=== PATIENT | male | born 1960 | race Caucasian/White ===

== ENCOUNTER 2017-07-14 15:52 | Emergency (ER) | payer OTHER ==
[~2017-07-14] VITALS: Ht 177.8 cm; Wt 80.7 kg
[2017-07-14 16:00] VITALS: BP_SYST 138
[2017-07-14] MEDS ORDERED: KETOROLAC TROMETHAMINE 30 MG VIAL IVP ONE (16:45)
[2017-07-14 16:53] LABS: BASOPHILS # (AUTO) 0.2 K/uL (0.0-0.2); BASOPHILS % (AUTO) 1.3 % (0.0-2.0); EOSINOPHILS # (AUTO) 0.1 K/uL (0.0-0.4); EOSINOPHILS % (AUTO) 1.1 % (0.0-4.0); HEMATOCRIT 49.7 % (36-54); HEMOGLOBIN 16.8 g/dL (14.0-18.0); MEAN CORPUSCULAR HEMOGLOBIN 34 pg (27-31); MEAN CORPUSCULAR HGB CONC 34 % (32-36); MEAN CORPUSCULAR VOLUME 99 fL (79.0-98.0); MONOCYTES # (AUTO) 1.2 K/uL (0.0-1.0); MONOCYTES % (AUTO) 9.7 % (1.7-9.3); NEUTROPHILS # (AUTO) 8.4 K/uL (1.8-7.7); NEUTROPHILS % (AUTO) 70.9 % (40.0-70.0); PLATELET COUNT (AUTO) 246 K/uL (130-430); RED BLOOD CELL COUNT(AUTO) 5.01 MIL/uL (4.2-6.2); RED CELL DISTRIBUTION WIDTH 13.8 % (9.0-15.0); WHITE BLOOD COUNT (AUTO) 11.9 K/uL (4.8-10.8)
[2017-07-14 16:54] LABS: CALCIUM 10.1 mg/dL (8.4-11.0); CREATININE 0.99 mg/dL (0.55-1.30); POTASSIUM 3.3 mmol/L (3.5-5.1)
[2017-07-14 16:58] LABS: PROTHROMBIN TIME 9.8 SECS (9.5-12.5)
[2017-07-14 16:59] LABS: ALBUMIN 3.7 g/dL (3.4-4.8); TOTAL BILIRUBIN 0.5 mg/dL (0.0-1.0)
[2017-07-14 18:19] VITALS: BP_SYST 135
== END 2017-07-14 18:14 | disposition home or self-care (01) ==
LOC: EDBD 15:52 → SED 15:52
DX: K51.90 Ulcerative colitis, unspecified, without complications (principal); Z88.1 Allergy status to other antibiotic agents
CPT/HCPCS: 36415; 71045; 80053; 85025; 85610; 85730; 86886; 86900; 86901; 93005; 96374; 99285; J1885

== ENCOUNTER 2018-04-20 15:39 | Emergency (ER) | payer OTHER ==
[~2018-04-20] VITALS: Ht 177.8 cm; Wt 90.7 kg
[2018-04-20 15:43] VITALS: BP_SYST 129
--- NOTE | 2018-04-20 15:50 | NUR ---
Patient reports having productive cough since Friday. Reports having three syncopal episodes yesterday and hitting head on porcelian tile. Abrasion to upper right head.
--- NOTE | 2018-04-20 16:57 | NUR ---
Patient to ER bed 02 to gown for evaluation. Side rails up. Report given to OLIVIA Dinero
--- NOTE | 2018-04-20 17:10 | NUR ---
Pt c/o cough x 2 days worsening today. Pt has no acute resp distress noted. Pt h/o HTN,Bronchitis and admits to smoking 1 pk a day.
--- NOTE | 2018-04-20 17:15 | NUR ---
ER at bedside examining patient.
[2018-04-20 17:29] VITALS: BP_SYST 129
--- NOTE | 2018-04-20 17:29 | NUR ---
Patient given written and verbal discharge instructions and verbalizes understanding. ER MD discussed with patient the results and treatment provided. Patient in stable condition. ID arm band removed. Rx of prednisone,azithromycin given. Patient educated on pain management and to follow up with PMD. Pain Scale 2. Opportunity for questions provided and answered. Medication side effect fact sheet provided.
== END 2018-04-20 17:29 | disposition home or self-care (01) ==
LOC: SED 15:39
DX: J11.1 Influenza due to unidentified influenza virus with other respiratory manifestations (principal); R05 Cough; F17.210 Nicotine dependence, cigarettes, uncomplicated; I10 Essential (primary) hypertension; Z88.1 Allergy status to other antibiotic agents
CPT/HCPCS: 99283

== ENCOUNTER 2019-07-14 16:01 | Emergency (ER) | payer BC, OTHER ==
[~2019-07-14] VITALS: Ht 177.8 cm; Wt 79.4 kg
[2019-07-14 16:03] VITALS: BP_SYST 142
--- NOTE | 2019-07-14 16:05 | NUR ---
Patient triaged and placed in waiting room. VSS and patient appears in no acute distress at this time. Accompanied by FAMILY, awaiting available bed, and MD notified of need for MSE.
--- NOTE | 2019-07-14 17:10 | NUR ---
Patient to ER bed 1 to gown for evaluation. Side rails up.
--- NOTE | 2019-07-14 17:15 | NUR ---
Patient presented to ER C/O mechanical fall. Patient ETOH, BIB ex- ambulatory, pain 9/10, facial abrasions to nose and right cheek, denies N/V/D. Patient states he fell today, son assisted to chair, pain to back of head and facial abrasions.
--- NOTE | 2019-07-14 17:45 | NUR ---
ER Dr. LEWIS at bedside examining patient.
--- NOTE | 2019-07-14 19:10 | NUR ---
Report to Lashawn BAKER
--- NOTE | 2019-07-14 19:33 | NUR ---
ER Dr. Johnson at bedside explaining results to patient.
[2019-07-14 19:45] VITALS: BP_SYST 130
--- NOTE | 2019-07-14 19:45 | NUR ---
Patient given written and verbal discharge instructions and verbalizes understanding. ER MD discussed with patient the results and treatment provided. Patient in stable condition. ID arm band removed. No Rx given. Patient educated on pain management and to follow up with PMD. Pain Scale 0. Opportunity for questions provided and answered. Medication side effect fact sheet provided.
== END 2019-07-14 19:45 | disposition home or self-care (01) ==
LOC: SED 16:01
DX: S00.03XA Contusion of scalp, initial encounter (principal); S00.81XA Abrasion of other part of head, initial encounter; I10 Essential (primary) hypertension; F17.290 Nicotine dependence, other tobacco product, uncomplicated; Z88.1 Allergy status to other antibiotic agents; W18.39XA Other fall on same level, initial encounter; Y93.89 Activity, other specified; Y92.89 Other specified places as the place of occurrence of the external cause; Y99.8 Other external cause status
CPT/HCPCS: 70450-TC; 70486-TC; 72125-TC; 99284

== ENCOUNTER 2019-11-08 15:32 | Inpatient (IN) | payer BC ==
[~2019-11-08] VITALS: Ht 177.8 cm; Wt 74.8 kg
[2019-11-08 15:33] VITALS: BP_SYST 129
[2019-11-08] MEDS ORDERED: NACL 0.9% 1,000 ML IV ONE (15:45)
[2019-11-08 15:57] LABS: BASOPHILS % (AUTO) 0.3 % (0.0-2.0); EOSINOPHILS % (AUTO) 0.4 % (0.0-4.0); HEMATOCRIT 23.7 % (36-54); HEMOGLOBIN 7.1 g/dL (14.0-18.0); LYMPHOCYTES % (AUTO) 12.9 % (20.5-51.5); MEAN CORPUSCULAR HEMOGLOBIN 23 pg (27-31); MEAN CORPUSCULAR HGB CONC 30 % (32-36); MEAN CORPUSCULAR VOLUME 78 fL (79.0-98.0); MONOCYTES # (AUTO) 0.7 K/uL (0.0-1.0); MONOCYTES % (AUTO) 9.8 % (1.7-9.3); NEUTROPHILS # (AUTO) 5.6 K/uL (1.8-7.7); NEUTROPHILS % (AUTO) 76.6 % (40.0-70.0); PLATELET COUNT (AUTO) 220 K/uL (130-430); RED BLOOD CELL COUNT(AUTO) 3.05 MIL/uL (4.2-6.2); RED CELL DISTRIBUTION WIDTH 18.3 % (9.0-15.0); WHITE BLOOD COUNT (AUTO) 7.4 K/uL (4.8-10.8)
[2019-11-08 16:30] LABS: ANION GAP 8 (5-15); CALCIUM 7.1 mg/dL (8.4-11.0); CHLORIDE 104 mmol/L (98-107); CREATININE 0.97 mg/dL (0.55-1.30); GLUCOSE 76 mg/dL (70-99); SODIUM SERUM 137 mmol/L (136-145); UREA NITROGEN, BLOOD 4 mg/dL (8-21)
[2019-11-08 16:36] LABS: GFR AFRICAN AMERICAN 102 mL/min (>90)
[2019-11-08] MEDS ORDERED: THIAMINE HCL 100 MG/ML VIAL IM ONE (16:45)
[2019-11-08] MEDS ORDERED: POTASSIUM CHLORIDE 20 MEQ TAB.PRT.SR PO ONE (16:45)
[2019-11-08] MEDS ORDERED: FOLIC ACID 5 MG/ML VIAL IV ONE (16:45)
[2019-11-08] MEDS ORDERED: THIAMINE HCL 100 MG in NS 50 ML IV ONE (16:45)
[2019-11-08 16:51] LABS: ALANINE AMINOTRANSFERASE 38 U/L (12-78); ALBUMIN 1.6 g/dL (3.4-4.8); ASPARTATE AMINOTRANSFERASE 52 U/L (10-37); LIPASE 24 U/L (73-393); TOTAL BILIRUBIN 0.7 mg/dL (0.0-1.0)
[2019-11-08 16:55] LABS: ALCOHOL, BLOOD < 3 mg/dL (<10); POTASSIUM 2.8 mmol/L (3.5-5.1)
[2019-11-08] MEDS ORDERED: LORazepam 2 MG/ML VIAL IVP ONE (17:00)
[2019-11-08 17:06] LABS: INR 1.2 (0.80-1.20); PROTHROMBIN TIME 11.8 SECS (9.5-12.5)
[2019-11-08] MEDS ORDERED: THIAMINE HCL 100 MG/ML VIAL ONE (17:20)
[2019-11-08 17:41] LABS: BARBITURATE, URINE NEGATIVE (NEG <=200); BENZODIAZEPINE, URINE POSITIVE (NEG <=150); CANNABINOID, URINE NEGATIVE (NEG <=50); COCAINE, URINE NEGATIVE (NEG <=150); METHAMPHETAMINES SCREEN,URINE NEGATIVE (NEG <=500); OPIATE, URINE NEGATIVE (NEG <=100); PHENCYCLIDINE SCREEN,URINE NEGATIVE (NEG <=25); UR TRICYCLIC ANTIDEPRESSANTS NEGATIVE (NEG <=300); URINE AMPHETAMINE NEGATIVE (NEG <=500); URINE METHADONE NEGATIVE (NEG <=200); URINE OXYCODONE SCREEN NEGATIVE (NEG <=100); URINE PROPOXYPHENE SCREEN NEGATIVE (NEG <=300)
[2019-11-08 18:36] VITALS: BP_SYST 138
[2019-11-08 20:00] VITALS: BP_SYST 146
[2019-11-08] MEDS ORDERED: FOLIC ACID 1 MG, THIAMINE HCL 100 MG, MAGNESIUM SULFATE 1 GM, MVI 10 ML in NACL 0.9% 1,... IV SCH (20:30)
[2019-11-08] MEDS ORDERED: ALBUTEROL SULFATE 0.083% 2.5 MG/3 ML VIAL.NEB INH PRN (20:30)
[2019-11-08] MEDS ORDERED: INSULIN REGULAR, HUMAN 100 UNITS/ML, 10 ML VIAL (humuLIN R) SUBCUT PRN (20:30)
[2019-11-08] MEDS: PANTOPRAZOLE SODIUM 40 MG TAB PO SCH (20:35)
[2019-11-08] MEDS: NACL 0.9% 1,000 ML IV SCH (20:35)
[2019-11-08] MEDS: MORPHINE 2 MG/ML INJ. SYRINGE IVP PRN (20:52)
[2019-11-08 23:50] VITALS: BP_SYST 121
[2019-11-09] MEDS: LORazepam 2 MG/ML VIAL IVP PRN ×3 (01:02→22:50)
[2019-11-09 02:59] VITALS: BP_SYST 121
[2019-11-09] MEDS: ONDANSETRON HCL 4 MG/2 ML VIAL IVP PRN ×2 (04:27→14:53)
[2019-11-09] MEDS ORDERED: LORazepam 2 MG/ML VIAL IVP ONE (04:45)
[2019-11-09 06:20] LABS: ALBUMIN 1.7 g/dL (3.4-4.8); CREATININE 0.76 mg/dL (0.55-1.30); TOTAL BILIRUBIN 1.3 mg/dL (0.0-1.0)
[2019-11-09 06:21] LABS: BASOPHILS % (AUTO) 0.3 % (0.0-2.0); EOSINOPHILS % (AUTO) 0.2 % (0.0-4.0); HEMATOCRIT 25.1 % (36-54); LYMPHOCYTES # (AUTO) 0.7 K/uL (1.0-5.5); LYMPHOCYTES % (AUTO) 13.1 % (20.5-51.5); MEAN CORPUSCULAR HEMOGLOBIN 24 pg (27-31); MEAN CORPUSCULAR HGB CONC 31 % (32-36); MEAN CORPUSCULAR VOLUME 78 fL (79.0-98.0); MONOCYTES # (AUTO) 0.6 K/uL (0.0-1.0); MONOCYTES % (AUTO) 10.6 % (1.7-9.3); NEUTROPHILS # (AUTO) 4.3 K/uL (1.8-7.7); NEUTROPHILS % (AUTO) 75.8 % (40.0-70.0); PLATELET COUNT (AUTO) 177 K/uL (130-430); RED BLOOD CELL COUNT(AUTO) 3.21 MIL/uL (4.2-6.2); RED CELL DISTRIBUTION WIDTH 18.4 % (9.0-15.0); WHITE BLOOD COUNT (AUTO) 5.7 K/uL (4.8-10.8)
[2019-11-09 06:24] LABS: POTASSIUM 2.4 mmol/L (3.5-5.1)
[2019-11-09 06:25] LABS: CALCIUM 6.9 mg/dL (8.4-11.0)
[2019-11-09] MEDS ORDERED: CALCIUM CHLORIDE 1 GM in NS 100 ML IV ONE (06:45)
[2019-11-09] MEDS ORDERED: POTASSIUM CHLORIDE 40 MEQ in NS 250 ML IV ONE (06:45)
[2019-11-09] MEDS ORDERED: POTASSIUM CHLORIDE 20 MEQ TAB.PRT.SR PO ONE (06:45)
[2019-11-09 07:43] LABS: HEMOGLOBIN 7.8 g/dL (14.0-18.0)
[2019-11-09] MEDS: NACL 0.9% 1,000 ML IV SCH ×2 (07:50→16:19)
[2019-11-09 08:00] VITALS: BP_SYST 118
[2019-11-09] MEDS: PANTOPRAZOLE SODIUM 40 MG TAB PO SCH ×2 (08:29→20:22)
[2019-11-09] MEDS ORDERED: FOLIC ACID 1 MG, THIAMINE HCL 100 MG, MAGNESIUM SULFATE 1 GM, MVI 10 ML in NACL 0.9% 1,... IV SCH (09:00)
[2019-11-09] MEDS: MORPHINE 2 MG/ML INJ. SYRINGE IVP PRN ×2 (09:26→14:45)
[2019-11-09] MEDS: FOLIC ACID 1 MG, MVI 10 ML in NACL 0.9% 1,000 ML IV SCH (09:43)
[2019-11-09] MEDS: THIAMINE HCL 100 MG, MAGNESIUM SULFATE 1 GM in NS 100 ML IV SCH (09:44)
[2019-11-09] MEDS ORDERED: chlordiazePOXIDE HCL 25 MG CAPSULE PO ONE (10:15)
[2019-11-09] MEDS ORDERED: MESALAMINE 400 MG CAPSULE.DR PO SCH (10:45)
[2019-11-09] MEDS ORDERED: MESALAMINE 400 MG CAPSULE.DR PO ONE (11:15)
[2019-11-09 12:16] VITALS: BP_SYST 122
[2019-11-09 12:51] LABS: POTASSIUM 3.5 mmol/L (3.5-5.1)
[2019-11-09] MEDS: chlordiazePOXIDE HCL 25 MG CAPSULE PO SCH ×2 (14:38→20:22)
[2019-11-09 16:16] VITALS: BP_SYST 128
[2019-11-09 16:55] LABS: TOTAL IRON BIND. CAPACITY 228 ug/dL (250-450)
[2019-11-09] MEDS ORDERED: D5W 1,000 ML IV PRN (17:34)
[2019-11-09] MEDS: GLUCOSE 15 GM GEL (in 37.5 GM TUBE) PO PRN (17:46)
[2019-11-09 20:00] VITALS: BP_SYST 129
[2019-11-09] MEDS: MESALAMINE 400 MG CAPSULE.DR PO SCH (20:22)
[2019-11-10 00:45] VITALS: BP_SYST 142
[2019-11-10] MEDS: NACL 0.9% 1,000 ML IV SCH ×2 (02:19→12:19)
[2019-11-10] MEDS: LORazepam 2 MG/ML VIAL IVP PRN ×5 (02:31→21:43)
[2019-11-10] MEDS ORDERED: LORazepam 2 MG/ML VIAL IVP ONE (04:00)
[2019-11-10] MEDS: MORPHINE 2 MG/ML INJ. SYRINGE IVP PRN ×4 (04:49→16:59)
[2019-11-10] MEDS: ONDANSETRON HCL 4 MG/2 ML VIAL IVP PRN (04:49)
[2019-11-10 06:29] LABS: BASOPHILS % (AUTO) 0.1 % (0.0-2.0); EOSINOPHILS % (AUTO) 0.8 % (0.0-4.0); HEMATOCRIT 23.2 % (36-54); HEMOGLOBIN 7.1 g/dL (14.0-18.0); MEAN CORPUSCULAR HEMOGLOBIN 24 pg (27-31); MEAN CORPUSCULAR HGB CONC 31 % (32-36); MEAN CORPUSCULAR VOLUME 79 fL (79.0-98.0); MONOCYTES # (AUTO) 0.4 K/uL (0.0-1.0); MONOCYTES % (AUTO) 9.3 % (1.7-9.3); NEUTROPHILS # (AUTO) 3.1 K/uL (1.8-7.7); NEUTROPHILS % (AUTO) 67.8 % (40.0-70.0); PLATELET COUNT (AUTO) 162 K/uL (130-430); RED BLOOD CELL COUNT(AUTO) 2.96 MIL/uL (4.2-6.2); RED CELL DISTRIBUTION WIDTH 18.3 % (9.0-15.0); WHITE BLOOD COUNT (AUTO) 4.6 K/uL (4.8-10.8)
[2019-11-10 07:18] LABS: ALBUMIN 1.4 g/dL (3.4-4.8); CREATININE 0.77 mg/dL (0.55-1.30); POTASSIUM 3.1 mmol/L (3.5-5.1); THYROID STIMULATING HORMONE 1.7 uIu/mL (0.36-3.74); TOTAL BILIRUBIN 0.7 mg/dL (0.0-1.0)
[2019-11-10 07:20] LABS: CALCIUM 6.8 mg/dL (8.4-11.0)
[2019-11-10 07:42] LABS: TOTAL IRON BIND. CAPACITY 202 ug/dL (250-450)
[2019-11-10] MEDS: MESALAMINE 400 MG CAPSULE.DR PO SCH ×2 (08:12→20:59)
[2019-11-10] MEDS: PANTOPRAZOLE SODIUM 40 MG TAB PO SCH ×2 (08:12→20:59)
[2019-11-10] MEDS: chlordiazePOXIDE HCL 25 MG CAPSULE PO SCH ×3 (08:12→20:59)
[2019-11-10] MEDS: THIAMINE HCL 100 MG, MAGNESIUM SULFATE 1 GM in NS 100 ML IV SCH (08:16)
[2019-11-10] MEDS: FOLIC ACID 1 MG, MVI 10 ML in NACL 0.9% 1,000 ML IV SCH (08:17)
[2019-11-10 08:40] VITALS: BP_SYST 140
[2019-11-10] MEDS ORDERED: POTASSIUM CHLORIDE 40 MEQ in NS 250 ML IV SCH (08:46)
[2019-11-10 12:11] VITALS: BP_SYST 139
[2019-11-10] MEDS: GLUCOSE 15 GM GEL (in 37.5 GM TUBE) PO PRN (12:22)
[2019-11-10 16:28] VITALS: BP_SYST 154
[2019-11-11 00:28] VITALS: BP_SYST 158
[2019-11-11] MEDS: LORazepam 2 MG/ML VIAL IVP PRN ×3 (02:10→17:40)
[2019-11-11 04:09] LABS: FOLATE (FOLIC ACID) 9.3 ng/mL (>3.0)
[2019-11-11 05:06] LABS: FOLATE (FOLIC ACID) >20.0 ng/mL (>3.0)
[2019-11-11 09:37] LABS: BASOPHILS % (AUTO) 0.2 % (0.0-2.0); EOSINOPHILS % (AUTO) 0.4 % (0.0-4.0); HEMATOCRIT 28.4 % (36-54); HEMOGLOBIN 8.8 g/dL (14.0-18.0); LYMPHOCYTES # (AUTO) 1.1 K/uL (1.0-5.5); MEAN CORPUSCULAR HEMOGLOBIN 24 pg (27-31); MEAN CORPUSCULAR HGB CONC 31 % (32-36); MEAN CORPUSCULAR VOLUME 79 fL (79.0-98.0); MONOCYTES # (AUTO) 0.7 K/uL (0.0-1.0); MONOCYTES % (AUTO) 10.8 % (1.7-9.3); NEUTROPHILS # (AUTO) 4.6 K/uL (1.8-7.7); NEUTROPHILS % (AUTO) 71.6 % (40.0-70.0); PLATELET COUNT (AUTO) 161 K/uL (130-430); RED BLOOD CELL COUNT(AUTO) 3.61 MIL/uL (4.2-6.2); WHITE BLOOD COUNT (AUTO) 6.4 K/uL (4.8-10.8)
[2019-11-11 09:40] LABS: FERRITIN 24 ng/mL (30-400)
[2019-11-11 09:45] LABS: CREATININE 0.67 mg/dL (0.55-1.30)
[2019-11-11 09:50] LABS: ALBUMIN 1.6 g/dL (3.4-4.8); TOTAL BILIRUBIN 0.9 mg/dL (0.0-1.0)
[2019-11-11 09:51] LABS: CALCIUM 6.9 mg/dL (8.4-11.0)
[2019-11-11] MEDS: chlordiazePOXIDE HCL 25 MG CAPSULE PO SCH ×3 (09:55→20:39)
[2019-11-11] MEDS: FOLIC ACID 1 MG, MVI 10 ML in NACL 0.9% 1,000 ML IV SCH (09:55)
[2019-11-11] MEDS: THIAMINE HCL 100 MG, MAGNESIUM SULFATE 1 GM in NS 100 ML IV SCH (09:55)
[2019-11-11] MEDS: PANTOPRAZOLE SODIUM 40 MG TAB PO SCH ×2 (09:55→20:39)
[2019-11-11] MEDS: MESALAMINE 400 MG CAPSULE.DR PO SCH ×2 (09:55→20:39)
[2019-11-11 10:03] VITALS: BP_SYST 147
[2019-11-11] MEDS: MORPHINE 2 MG/ML INJ. SYRINGE IVP PRN (12:39)
[2019-11-11 13:11] VITALS: BP_SYST 144
[2019-11-11] MEDS: NACL 0.9% 1,000 ML IV SCH (16:53)
[2019-11-11] MEDS ORDERED: BISACODYL 5 MG TABLET.DR (DULCOLAX) PO ONE (17:00)
[2019-11-11 17:55] VITALS: BP_SYST 124
[2019-11-11] MEDS ORDERED: GOLYTELY / COLYTE SOLUTION 4 LITERS PO ONE (18:00)
[2019-11-11 20:00] VITALS: BP_SYST 133
[2019-11-12] VITALS: BP_SYST 141
[2019-11-12 06:26] LABS: ALBUMIN 1.5 g/dL (3.4-4.8); CREATININE 0.67 mg/dL (0.55-1.30); TOTAL BILIRUBIN 0.9 mg/dL (0.0-1.0)
[2019-11-12 06:28] LABS: POTASSIUM 2.7 mmol/L (3.5-5.1)
[2019-11-12 06:31] LABS: CALCIUM 6.9 mg/dL (8.4-11.0)
[2019-11-12 06:34] LABS: HEMATOCRIT 25.3 % (36-54); HEMOGLOBIN 8.2 g/dL (14.0-18.0); MEAN CORPUSCULAR HEMOGLOBIN 26 pg (27-31); MEAN CORPUSCULAR HGB CONC 33 % (32-36); MEAN CORPUSCULAR VOLUME 79 fL (79.0-98.0); PLATELET COUNT (AUTO) 214 K/uL (130-430); RED BLOOD CELL COUNT(AUTO) 3.21 MIL/uL (4.2-6.2); RED CELL DISTRIBUTION WIDTH 20.8 % (9.0-15.0); WHITE BLOOD COUNT (AUTO) 6.3 K/uL (4.8-10.8)
[2019-11-12] MEDS ORDERED: CALCIUM CHLORIDE 1 GM in NS 100 ML IV ONE (07:00)
[2019-11-12] MEDS ORDERED: KCL 40 mEq in 100 mL (PREMIX) 100 ML IV ONE (07:00)
[2019-11-12] MEDS ORDERED: POTASSIUM CHLORIDE 20 MEQ TAB.PRT.SR PO ONE (07:00)
[2019-11-12] MEDS ORDERED: MIDAZOLAM HCL 5 MG/5 ML VIAL ONE (07:38)
[2019-11-12 07:50] VITALS: BP_SYST 153
[2019-11-12 08:16] LABS: BASOPHILS % (MANUAL) 0 % (0-2); EOSINOPHILS % (MANUAL) 0 % (0-7); LYMPHOCYTES % (MANUAL) 13 % (20-46); MONOCYTES % (MANUAL) 3 % (0-11)
[2019-11-12] MEDS: MESALAMINE 400 MG CAPSULE.DR PO SCH ×2 (08:41→21:08)
[2019-11-12] MEDS: chlordiazePOXIDE HCL 25 MG CAPSULE PO SCH ×3 (08:41→21:08)
[2019-11-12] MEDS: PANTOPRAZOLE SODIUM 40 MG TAB PO SCH ×2 (08:41→21:08)
[2019-11-12] MEDS ORDERED: POTASSIUM CHLORIDE 40 MEQ in NS 250 ML IV ONE (09:00)
[2019-11-12] MEDS: MEPERIDINE HCL/PF 100 MG/ML AMP ONE ×5 (10:30→10:49)
[2019-11-12] MEDS: MIDAZOLAM HCL 5 MG/5 ML VIAL ONE ×4 (10:32→10:42)
[2019-11-12] MEDS ORDERED: SIMETHICONE 40 MG/0.6 ML ML ONE (10:46)
[2019-11-12] MEDS ORDERED: methylPREDNISolone SOD SUCC/PF 62.5 MG/ML VIAL IVP ONE (11:30)
[2019-11-12 12:00] VITALS: BP_SYST 155
[2019-11-12] MEDS: THIAMINE HCL 100 MG, MAGNESIUM SULFATE 1 GM in NS 100 ML IV SCH (12:19)
[2019-11-12] MEDS: FOLIC ACID 1 MG, MVI 10 ML in NACL 0.9% 1,000 ML IV SCH (12:19)
[2019-11-12 16:00] VITALS: BP_SYST 148
[2019-11-12 16:49] LABS: CALCIUM 7.4 mg/dL (8.4-11.0); CREATININE 0.78 mg/dL (0.55-1.30); POTASSIUM 4.1 mmol/L (3.5-5.1)
[2019-11-12 20:00] VITALS: BP_SYST 160
[2019-11-12] MEDS: methylPREDNISolone SOD SUCC/PF 62.5 MG/ML VIAL IVP SCH (21:07)
[2019-11-13 00:18] VITALS: BP_SYST 117
[2019-11-13 01:29] VITALS: BP_SYST 145
[2019-11-13] MEDS: LORazepam 2 MG/ML VIAL IVP PRN (01:29)
[2019-11-13] MEDS: NACL 0.9% 1,000 ML IV SCH ×3 (04:57→20:19)
[2019-11-13 06:46] LABS: CALCIUM 7.3 mg/dL (8.4-11.0); CREATININE 0.79 mg/dL (0.55-1.30); POTASSIUM 3.4 mmol/L (3.5-5.1)
[2019-11-13 08:05] VITALS: BP_SYST 149
[2019-11-13] MEDS: MESALAMINE 400 MG CAPSULE.DR PO SCH ×2 (08:43→20:20)
[2019-11-13] MEDS: PANTOPRAZOLE SODIUM 40 MG TAB PO SCH ×2 (08:43→20:21)
[2019-11-13] MEDS: methylPREDNISolone SOD SUCC/PF 62.5 MG/ML VIAL IVP SCH ×2 (08:43→20:22)
[2019-11-13] MEDS: chlordiazePOXIDE HCL 25 MG CAPSULE PO SCH ×3 (08:44→20:21)
[2019-11-13] MEDS ORDERED: POTASSIUM CHLORIDE 20 MEQ TAB.PRT.SR PO ONE (09:00)
[2019-11-13] MEDS: THIAMINE HCL 100 MG, MAGNESIUM SULFATE 1 GM in NS 100 ML IV SCH (09:22)
[2019-11-13] MEDS: FOLIC ACID 1 MG, MVI 10 ML in NACL 0.9% 1,000 ML IV SCH (09:22)
[2019-11-13] MEDS: MORPHINE 2 MG/ML INJ. SYRINGE IVP PRN ×2 (10:58→15:25)
[2019-11-13 12:25] VITALS: BP_SYST 148
[2019-11-13] MEDS ORDERED: MORPHINE SULFATE 10 MG/ML VIAL IVP PRN (16:00)
[2019-11-13 16:20] VITALS: BP_SYST 144
[2019-11-13] MEDS: ACETAMINOPHEN 325 MG TABLET PO PRN (20:21)
[2019-11-13] MEDS: ONDANSETRON HCL 4 MG/2 ML VIAL IVP PRN (20:21)
[2019-11-13 20:31] VITALS: BP_SYST 144
[2019-11-14] VITALS (8 sets, daily range): BP systolic 128–152
[2019-11-14] MEDS: NACL 0.9% 1,000 ML IV SCH (05:05)
[2019-11-14 06:17] LABS: BASOPHILS % (AUTO) 0.2 % (0.0-2.0); HEMATOCRIT 29.3 % (36-54); HEMOGLOBIN 8.8 g/dL (14.0-18.0); LYMPHOCYTES # (AUTO) 0.8 K/uL (1.0-5.5); LYMPHOCYTES % (AUTO) 13.2 % (20.5-51.5); MEAN CORPUSCULAR HEMOGLOBIN 24 pg (27-31); MEAN CORPUSCULAR HGB CONC 30 % (32-36); MEAN CORPUSCULAR VOLUME 81 fL (79.0-98.0); MONOCYTES # (AUTO) 0.3 K/uL (0.0-1.0); MONOCYTES % (AUTO) 5.5 % (1.7-9.3); NEUTROPHILS # (AUTO) 4.9 K/uL (1.8-7.7); NEUTROPHILS % (AUTO) 81.1 % (40.0-70.0); PLATELET COUNT (AUTO) 155 K/uL (130-430); RED BLOOD CELL COUNT(AUTO) 3.62 MIL/uL (4.2-6.2); RED CELL DISTRIBUTION WIDTH 22.4 % (9.0-15.0); WHITE BLOOD COUNT (AUTO) 6.1 K/uL (4.8-10.8)
[2019-11-14 06:35] LABS: ALBUMIN 1.6 g/dL (3.4-4.8); CALCIUM 7.6 mg/dL (8.4-11.0); CREATININE 0.92 mg/dL (0.55-1.30); POTASSIUM 4.2 mmol/L (3.5-5.1); TOTAL BILIRUBIN 0.9 mg/dL (0.0-1.0)
[2019-11-14] MEDS: MESALAMINE 400 MG CAPSULE.DR PO SCH ×2 (09:08→20:10)
[2019-11-14] MEDS: PANTOPRAZOLE SODIUM 40 MG TAB PO SCH ×2 (09:08→20:11)
[2019-11-14] MEDS: chlordiazePOXIDE HCL 25 MG CAPSULE PO SCH ×3 (09:08→20:11)
[2019-11-14] MEDS: methylPREDNISolone SOD SUCC/PF 62.5 MG/ML VIAL IVP SCH (09:08)
[2019-11-14] MEDS: THIAMINE HCL 100 MG, MAGNESIUM SULFATE 1 GM in NS 100 ML IV SCH (09:09)
[2019-11-14] MEDS: FOLIC ACID 1 MG, MVI 10 ML in NACL 0.9% 1,000 ML IV SCH (09:10)
[2019-11-14] MEDS: LORazepam 1 MG TABLET PO PRN ×3 (14:52→23:56)
[2019-11-14] MEDS: HYDROcodone/ACETAMIN 5-325 MG TAB (NORCO/ VICODIN) PO PRN ×3 (14:53→23:57)
[2019-11-14] MEDS ORDERED: ZOLPIDEM TARTRATE 5 MG TABLET PO ONE (22:45)
[2019-11-15 07:13] LABS: BASOPHILS % (AUTO) 0.2 % (0.0-2.0); HEMATOCRIT 30.1 % (36-54); LYMPHOCYTES # (AUTO) 2.4 K/uL (1.0-5.5); LYMPHOCYTES % (AUTO) 20.3 % (20.5-51.5); MEAN CORPUSCULAR HEMOGLOBIN 24 pg (27-31); MEAN CORPUSCULAR HGB CONC 30 % (32-36); MEAN CORPUSCULAR VOLUME 81 fL (79.0-98.0); MONOCYTES # (AUTO) 1.1 K/uL (0.0-1.0); MONOCYTES % (AUTO) 8.9 % (1.7-9.3); NEUTROPHILS # (AUTO) 8.4 K/uL (1.8-7.7); NEUTROPHILS % (AUTO) 70.6 % (40.0-70.0); PLATELET COUNT (AUTO) 177 K/uL (130-430); RED BLOOD CELL COUNT(AUTO) 3.73 MIL/uL (4.2-6.2); RED CELL DISTRIBUTION WIDTH 23.5 % (9.0-15.0); WHITE BLOOD COUNT (AUTO) 11.9 K/uL (4.8-10.8)
[2019-11-15 08:00] VITALS: BP_SYST 152
[2019-11-15] MEDS: chlordiazePOXIDE HCL 25 MG CAPSULE PO SCH (08:04)
[2019-11-15] MEDS: PREDNISONE 20 MG TABLET PO SCH (08:05)
[2019-11-15] MEDS: MESALAMINE 400 MG CAPSULE.DR PO SCH ×2 (08:05→20:37)
[2019-11-15] MEDS: PANTOPRAZOLE SODIUM 40 MG TAB PO SCH ×2 (08:05→20:37)
[2019-11-15] MEDS: HYDROcodone/ACETAMIN 5-325 MG TAB (NORCO/ VICODIN) PO PRN ×3 (08:08→23:25)
[2019-11-15 12:00] VITALS: BP_SYST 140
[2019-11-15] MEDS: LORazepam 1 MG TABLET PO PRN ×2 (15:33→20:42)
[2019-11-15 16:45] VITALS: BP_SYST 104
[2019-11-15 20:30] VITALS: BP_SYST 138
[2019-11-16 00:08] VITALS: BP_SYST 134
[2019-11-16 08:21] VITALS: BP_SYST 162
[2019-11-16] MEDS: MESALAMINE 400 MG CAPSULE.DR PO SCH ×2 (09:32→20:59)
[2019-11-16] MEDS: PANTOPRAZOLE SODIUM 40 MG TAB PO SCH ×2 (09:33→20:59)
[2019-11-16] MEDS: HYDROcodone/ACETAMIN 5-325 MG TAB (NORCO/ VICODIN) PO PRN ×3 (09:33→21:43)
[2019-11-16] MEDS: PREDNISONE 20 MG TABLET PO SCH (09:33)
[2019-11-16] MEDS: LORazepam 1 MG TABLET PO PRN ×3 (09:38→21:41)
[2019-11-16 12:33] VITALS: BP_SYST 151
[2019-11-16 16:40] VITALS: BP_SYST 148
[2019-11-16 21:00] VITALS: BP_SYST 142
[2019-11-17 00:05] VITALS: BP_SYST 143
[2019-11-17 06:54] LABS: CREATININE 0.93 mg/dL (0.55-1.30); POTASSIUM 4.2 mmol/L (3.5-5.1); TOTAL BILIRUBIN 1.3 mg/dL (0.0-1.0)
[2019-11-17 07:08] LABS: BASOPHILS # (AUTO) 0.2 K/uL (0.0-0.2); BASOPHILS % (AUTO) 1.4 % (0.0-2.0); EOSINOPHILS % (AUTO) 0.3 % (0.0-4.0); HEMATOCRIT 32.8 % (36-54); HEMOGLOBIN 9.5 g/dL (14.0-18.0); LYMPHOCYTES # (AUTO) 3.3 K/uL (1.0-5.5); LYMPHOCYTES % (AUTO) 29.3 % (20.5-51.5); MEAN CORPUSCULAR HEMOGLOBIN 24 pg (27-31); MEAN CORPUSCULAR HGB CONC 29 % (32-36); MEAN CORPUSCULAR VOLUME 82 fL (79.0-98.0); MONOCYTES # (AUTO) 0.9 K/uL (0.0-1.0); MONOCYTES % (AUTO) 7.8 % (1.7-9.3); NEUTROPHILS % (AUTO) 61.2 % (40.0-70.0); PLATELET COUNT (AUTO) 160 K/uL (130-430); RED BLOOD CELL COUNT(AUTO) 4.02 MIL/uL (4.2-6.2); RED CELL DISTRIBUTION WIDTH 23.1 % (9.0-15.0); WHITE BLOOD COUNT (AUTO) 11.4 K/uL (4.8-10.8)
[2019-11-17 08:00] VITALS: BP_SYST 150
[2019-11-17] MEDS: PREDNISONE 20 MG TABLET PO SCH (08:20)
[2019-11-17] MEDS: MESALAMINE 400 MG CAPSULE.DR PO SCH ×2 (08:20→20:23)
[2019-11-17] MEDS: HYDROcodone/ACETAMIN 5-325 MG TAB (NORCO/ VICODIN) PO PRN ×3 (08:21→20:34)
[2019-11-17] MEDS: LORazepam 1 MG TABLET PO PRN ×3 (08:22→20:23)
[2019-11-17] MEDS: PANTOPRAZOLE SODIUM 40 MG TAB PO SCH ×2 (08:22→20:23)
[2019-11-17 12:30] VITALS: BP_SYST 138
[2019-11-17 16:16] VITALS: BP_SYST 138
[2019-11-17 19:00] VITALS: BP_SYST 136
[2019-11-17 20:00] VITALS: BP_SYST 136
[2019-11-17] MEDS ORDERED: MECLIZINE HCL 25 MG TABLET (ANITVERT) PO ONE (22:15)
[2019-11-18] MEDS: LORazepam 1 MG TABLET PO PRN ×4 (00:16→16:51)
[2019-11-18] MEDS: HYDROcodone/ACETAMIN 5-325 MG TAB (NORCO/ VICODIN) PO PRN ×4 (00:18→16:53)
[2019-11-18 00:39] VITALS: BP_SYST 141
[2019-11-18 08:07] VITALS: BP_SYST 121
[2019-11-18] MEDS: PANTOPRAZOLE SODIUM 40 MG TAB PO SCH ×2 (08:40→21:46)
[2019-11-18] MEDS: MESALAMINE 400 MG CAPSULE.DR PO SCH ×2 (08:40→21:46)
[2019-11-18] MEDS: PREDNISONE 20 MG TABLET PO SCH (08:40)
[2019-11-18 12:00] VITALS: BP_SYST 127
[2019-11-18 16:17] VITALS: BP_SYST 122
[2019-11-18 20:00] VITALS: BP_SYST 139
[2019-11-19] MEDS: LORazepam 1 MG TABLET PO PRN ×3 (00:14→15:41)
[2019-11-19] MEDS: HYDROcodone/ACETAMIN 5-325 MG TAB (NORCO/ VICODIN) PO PRN ×4 (00:14→18:39)
[2019-11-19 00:21] VITALS: BP_SYST 144
[2019-11-19 08:00] VITALS: BP_SYST 140
[2019-11-19] MEDS: MESALAMINE 400 MG CAPSULE.DR PO SCH ×2 (09:13→21:45)
[2019-11-19] MEDS: PREDNISONE 20 MG TABLET PO SCH (09:13)
[2019-11-19] MEDS: PANTOPRAZOLE SODIUM 40 MG TAB PO SCH ×2 (09:13→21:45)
[2019-11-19 12:03] VITALS: BP_SYST 150
[2019-11-19] MEDS ORDERED: ASA400 PO (14:31)
[2019-11-19 15:36] VITALS: BP_SYST 145
[2019-11-20] VITALS (8 sets, daily range): BP systolic 136–154
[2019-11-20] MEDS: HYDROcodone/ACETAMIN 5-325 MG TAB (NORCO/ VICODIN) PO PRN ×4 (01:44→20:57)
[2019-11-20] MEDS: MESALAMINE 400 MG CAPSULE.DR PO SCH ×2 (08:37→20:57)
[2019-11-20] MEDS: PREDNISONE 20 MG TABLET PO SCH (08:38)
[2019-11-20] MEDS: PANTOPRAZOLE SODIUM 40 MG TAB PO SCH ×2 (08:38→20:57)
[2019-11-20] MEDS: ACETAMINOPHEN 325 MG TABLET PO PRN (10:54)
[2019-11-20] MEDS: LORazepam 1 MG TABLET PO PRN ×2 (10:54→16:04)
[2019-11-21 01:58] VITALS: BP_SYST 148
[2019-11-21] MEDS: HYDROcodone/ACETAMIN 5-325 MG TAB (NORCO/ VICODIN) PO PRN ×3 (04:00→16:55)
[2019-11-21] MEDS: LORazepam 1 MG TABLET PO PRN ×2 (04:45→11:05)
[2019-11-21 08:00] VITALS: BP_SYST 146
[2019-11-21] MEDS: PANTOPRAZOLE SODIUM 40 MG TAB PO SCH ×2 (08:56→21:22)
[2019-11-21] MEDS: MESALAMINE 400 MG CAPSULE.DR PO SCH ×2 (08:56→21:22)
[2019-11-21] MEDS: PREDNISONE 20 MG TABLET PO SCH (08:56)
[2019-11-21 12:54] VITALS: BP_SYST 144
[2019-11-21 16:19] VITALS: BP_SYST 140
[2019-11-21 19:28] VITALS: BP_SYST 143
[2019-11-22 00:21] VITALS: BP_SYST 140
[2019-11-22] MEDS: HYDROcodone/ACETAMIN 5-325 MG TAB (NORCO/ VICODIN) PO PRN ×2 (01:05→05:05)
[2019-11-22 07:30] LABS: BASOPHILS % (AUTO) 0.2 % (0.0-2.0); HEMATOCRIT 32.6 % (36-54); HEMOGLOBIN 9.5 g/dL (14.0-18.0); LYMPHOCYTES % (AUTO) 11.3 % (20.5-51.5); MEAN CORPUSCULAR HEMOGLOBIN 23 pg (27-31); MEAN CORPUSCULAR HGB CONC 29 % (32-36); MEAN CORPUSCULAR VOLUME 80 fL (79.0-98.0); MONOCYTES # (AUTO) 0.8 K/uL (0.0-1.0); MONOCYTES % (AUTO) 4.6 % (1.7-9.3); NEUTROPHILS # (AUTO) 14.8 K/uL (1.8-7.7); NEUTROPHILS % (AUTO) 83.9 % (40.0-70.0); PLATELET COUNT (AUTO) 217 K/uL (130-430); RED BLOOD CELL COUNT(AUTO) 4.09 MIL/uL (4.2-6.2); WHITE BLOOD COUNT (AUTO) 17.7 K/uL (4.8-10.8)
[2019-11-22 07:42] LABS: ALBUMIN 1.9 g/dL (3.4-4.8); CALCIUM 7.8 mg/dL (8.4-11.0); CREATININE 0.92 mg/dL (0.55-1.30); POTASSIUM 4.7 mmol/L (3.5-5.1); TOTAL BILIRUBIN 2.2 mg/dL (0.0-1.0)
[2019-11-22 07:51] LABS: RED CELL DISTRIBUTION WIDTH 23.2 % (9.0-15.0)
[2019-11-22 08:12] VITALS: BP_SYST 138
[2019-11-22 08:17] LABS: C-REACTIVE PROTEIN QUANT 7.6 mg/dL (0-0.5)
[2019-11-22] MEDS: PANTOPRAZOLE SODIUM 40 MG TAB PO SCH ×2 (08:37→21:11)
[2019-11-22] MEDS: MESALAMINE 400 MG CAPSULE.DR PO SCH ×2 (08:37→21:11)
[2019-11-22] MEDS: PREDNISONE 20 MG TABLET PO SCH (08:37)
[2019-11-22 08:52] LABS: ERYTHROCYTE SEDIMENTATION RATE 7 MM/HR (0-15)
[2019-11-22 12:00] VITALS: BP_SYST 135
[2019-11-22] MEDS: ACETAMINOPHEN 325 MG TABLET PO PRN ×2 (13:05→21:11)
[2019-11-22 16:24] VITALS: BP_SYST 151
[2019-11-22 21:00] VITALS: BP_SYST 145
[2019-11-23 00:05] VITALS: BP_SYST 151
[2019-11-23] MEDS: ACETAMINOPHEN 325 MG TABLET PO PRN ×3 (02:12→17:07)
[2019-11-23] MEDS: DEXTROSE 50% JECT 50 ML DISP.SYRIN IVP PRN ×2 (06:52→07:17)
[2019-11-23] MEDS: GLUCOSE 15 GM GEL (in 37.5 GM TUBE) PO PRN (07:01)
[2019-11-23 07:45] VITALS: BP_SYST 131
[2019-11-23 07:54] LABS: BASOPHILS % (AUTO) 0.2 % (0.0-2.0); HEMATOCRIT 34.9 % (36-54); HEMOGLOBIN 9.5 g/dL (14.0-18.0); LYMPHOCYTES # (AUTO) 1.1 K/uL (1.0-5.5); LYMPHOCYTES % (AUTO) 6.7 % (20.5-51.5); MEAN CORPUSCULAR HEMOGLOBIN 23 pg (27-31); MEAN CORPUSCULAR HGB CONC 27 % (32-36); MEAN CORPUSCULAR VOLUME 85 fL (79.0-98.0); MONOCYTES # (AUTO) 0.9 K/uL (0.0-1.0); MONOCYTES % (AUTO) 5.9 % (1.7-9.3); NEUTROPHILS # (AUTO) 13.8 K/uL (1.8-7.7); NEUTROPHILS % (AUTO) 87.2 % (40.0-70.0); PLATELET COUNT (AUTO) 248 K/uL (130-430); RED BLOOD CELL COUNT(AUTO) 4.11 MIL/uL (4.2-6.2); WHITE BLOOD COUNT (AUTO) 15.8 K/uL (4.8-10.8)
[2019-11-23] MEDS ORDERED: PREDNISONE 20 MG TABLET PO SCH (08:00)
[2019-11-23] MEDS ORDERED: D5NS 1,000 ML IV SCH (08:45)
[2019-11-23] MEDS ORDERED: D10W 250 ML IV SCH (09:15)
[2019-11-23] MEDS ORDERED: methylPREDNISolone SOD SUCC 40 MG/ML VIAL IVP ONE (09:15)
[2019-11-23] MEDS ORDERED: PANTOPRAZOLE SODIUM 40 MG/VIAL (PROTONIX) IVP ONE (09:15)
[2019-11-23] MEDS: MESALAMINE 400 MG CAPSULE.DR PO SCH ×2 (10:48→20:31)
[2019-11-23] MEDS: LEVOFLOXACIN 500 MG/D5W 100 ML IV SCH (10:50)
[2019-11-23 11:11] LABS: POTASSIUM 5.8 mmol/L (3.5-5.1)
[2019-11-23 11:12] LABS: CALCIUM 8.8 mg/dL (8.4-11.0); CREATININE 1.38 mg/dL (0.55-1.30); TOTAL BILIRUBIN 2.8 mg/dL (0.0-1.0)
[2019-11-23 11:13] LABS: ALBUMIN 2.1 g/dL (3.4-4.8)
[2019-11-23] MEDS ORDERED: SODIUM POLYSTYRENE SULFONATE 15 GM/60 ML UDBTL PO ONE (12:30)
[2019-11-23 12:35] VITALS: BP_SYST 142
[2019-11-23 13:09] LABS: BILIRUBIN,URINE NEGATIVE (NEGATIVE); BLOOD, URINE NEGATIVE (NEGATIVE); CLARITY/URINE SL CLOUDY (CLEAR); COLOR,URINE YELLOW (YELLOW); GLUCOSE,URINE NEGATIVE (NEGATIVE); KETONES,URINE NEGATIVE (NEGATIVE); LEUKOCYTE ESTERASE ,URINE NEGATIVE (NEGATIVE); NITRITE, URINE NEGATIVE (NEGATIVE); PROTEIN URINE NEGATIVE (NEGATIVE)
[2019-11-23 13:35] LABS: BACTERIA,URINE RARE /HPF (None Seen); RBC,URINE 0-3 /HPF (0-3); WBC,URINE 0-3 /HPF (0-3)
[2019-11-23 13:37] LABS: URINE AMORPHOUS URATE 3+ /HPF (None Seen)
[2019-11-23] MEDS: ONDANSETRON HCL 4 MG/2 ML VIAL IVP PRN ×2 (14:16→20:30)
[2019-11-23] MEDS: D10W 1,000 ML IV SCH (14:37)
[2019-11-23 16:36] VITALS: BP_SYST 153
[2019-11-23] MEDS: INSULIN REGULAR, HUMAN 100 UNITS/ML, 10 ML VIAL (humuLIN R) SUBCUT PRN (17:12)
[2019-11-23] MEDS ORDERED: HYDROcodone/ACETAMIN 5-325 MG TAB (NORCO/ VICODIN) PO ONE (20:15)
[2019-11-23] MEDS: PANTOPRAZOLE SODIUM 40 MG/VIAL (PROTONIX) IVP SCH (20:29)
[2019-11-23] MEDS: metroNIDAZOLE 500 mg/NS 100 ML IV SCH (20:32)
[2019-11-24 00:24] VITALS: BP_SYST 144
[2019-11-24] MEDS ORDERED: HYDROcodone/ACETAMIN 5-325 MG TAB (NORCO/ VICODIN) PO ONE (00:45)
[2019-11-24] MEDS ORDERED: TEMAZEPAM 15 MG CAPSULE PO ONE (01:15)
[2019-11-24 02:30] VITALS: BP_SYST 153
[2019-11-24] MEDS ORDERED: MORPHINE 2 MG/ML INJ. SYRINGE IVP ONE ×2 (04:45→21:15)
[2019-11-24 06:25] VITALS: BP_SYST 106
[2019-11-24 07:06] LABS: HEPATITIS A AB, IgM Negative (Negative); HEPATITIS B CORE AB, IgM Negative (Negative); HEPATITIS B SURFACE AG Negative (Negative)
[2019-11-24 07:36] LABS: BASOPHILS % (AUTO) 0.2 % (0.0-2.0); HEMATOCRIT 27.7 % (36-54); HEMOGLOBIN 8.2 g/dL (14.0-18.0); LYMPHOCYTES # (AUTO) 0.9 K/uL (1.0-5.5); LYMPHOCYTES % (AUTO) 6.2 % (20.5-51.5); MEAN CORPUSCULAR HEMOGLOBIN 23 pg (27-31); MEAN CORPUSCULAR HGB CONC 30 % (32-36); MEAN CORPUSCULAR VOLUME 79 fL (79.0-98.0); MONOCYTES # (AUTO) 0.5 K/uL (0.0-1.0); MONOCYTES % (AUTO) 3.4 % (1.7-9.3); NEUTROPHILS # (AUTO) 12.4 K/uL (1.8-7.7); NEUTROPHILS % (AUTO) 90.2 % (40.0-70.0); PLATELET COUNT (AUTO) 158 K/uL (130-430); RED BLOOD CELL COUNT(AUTO) 3.52 MIL/uL (4.2-6.2); RED CELL DISTRIBUTION WIDTH 23.1 % (9.0-15.0); WHITE BLOOD COUNT (AUTO) 13.8 K/uL (4.8-10.8)
[2019-11-24 07:45] VITALS: BP_SYST 138
[2019-11-24 08:11] LABS: ALBUMIN 1.7 g/dL (3.4-4.8); CALCIUM 7.7 mg/dL (8.4-11.0); CREATININE 0.91 mg/dL (0.55-1.30); POTASSIUM 3.6 mmol/L (3.5-5.1)
[2019-11-24] MEDS: PANTOPRAZOLE SODIUM 40 MG/VIAL (PROTONIX) IVP SCH ×2 (08:31→21:10)
[2019-11-24] MEDS: metroNIDAZOLE 500 mg/NS 100 ML IV SCH ×2 (08:31→21:11)
[2019-11-24] MEDS: methylPREDNISolone SOD SUCC 40 MG/ML VIAL IVP SCH (08:31)
[2019-11-24] MEDS: INSULIN REGULAR, HUMAN 100 UNITS/ML, 10 ML VIAL (humuLIN R) SUBCUT PRN ×2 (08:33→18:30)
[2019-11-24] MEDS: MESALAMINE 400 MG CAPSULE.DR PO SCH ×2 (09:00→21:16)
[2019-11-24] MEDS: LEVOFLOXACIN 500 MG/D5W 100 ML IV SCH (10:23)
[2019-11-24 11:18] LABS: ANTI NUCLEAR AB WITH REFLEX Negative (Negative)
[2019-11-24 12:20] VITALS: BP_SYST 142
[2019-11-24] MEDS: D10W 1,000 ML IV SCH (16:01)
[2019-11-24] MEDS: ACETAMINOPHEN 325 MG TABLET PO PRN (16:02)
[2019-11-24 16:55] VITALS: BP_SYST 137
[2019-11-24] MEDS: ONDANSETRON HCL 4 MG/2 ML VIAL IVP PRN (21:11)
[2019-11-25] VITALS (8 sets, daily range): BP systolic 127–160
[2019-11-25] MEDS ORDERED: HYDROcodone/ACETAMIN 5-325 MG TAB (NORCO/ VICODIN) PO ONE (02:30)
[2019-11-25] MEDS ORDERED: HYDROcodone/ACETAMIN 5-325 MG TAB (NORCO/ VICODIN) ONE (03:07)
[2019-11-25 06:59] LABS: BASOPHILS % (AUTO) 0.1 % (0.0-2.0); HEMATOCRIT 27.9 % (36-54); HEMOGLOBIN 8.4 g/dL (14.0-18.0); LYMPHOCYTES # (AUTO) 1.2 K/uL (1.0-5.5); MEAN CORPUSCULAR HEMOGLOBIN 23 pg (27-31); MEAN CORPUSCULAR HGB CONC 30 % (32-36); MONOCYTES # (AUTO) 0.6 K/uL (0.0-1.0); MONOCYTES % (AUTO) 4.7 % (1.7-9.3); NEUTROPHILS # (AUTO) 11.3 K/uL (1.8-7.7); NEUTROPHILS % (AUTO) 86.2 % (40.0-70.0); PLATELET COUNT (AUTO) 161 K/uL (130-430); RED BLOOD CELL COUNT(AUTO) 3.61 MIL/uL (4.2-6.2); RED CELL DISTRIBUTION WIDTH 22.6 % (9.0-15.0); WHITE BLOOD COUNT (AUTO) 13.1 K/uL (4.8-10.8)
[2019-11-25 07:20] LABS: MEAN CORPUSCULAR VOLUME 78 fL (79.0-98.0)
[2019-11-25] MEDS: INSULIN REGULAR, HUMAN 100 UNITS/ML, 10 ML VIAL (humuLIN R) SUBCUT PRN ×4 (07:28→21:35)
[2019-11-25 08:28] LABS: ALBUMIN 1.8 g/dL (3.4-4.8); CALCIUM 7.5 mg/dL (8.4-11.0); CREATININE 0.91 mg/dL (0.55-1.30); POTASSIUM 3.2 mmol/L (3.5-5.1); TOTAL BILIRUBIN 1.3 mg/dL (0.0-1.0)
[2019-11-25] MEDS: metroNIDAZOLE 500 mg/NS 100 ML IV SCH ×2 (08:56→21:28)
[2019-11-25] MEDS: PANTOPRAZOLE SODIUM 40 MG/VIAL (PROTONIX) IVP SCH ×2 (08:56→21:28)
[2019-11-25] MEDS: methylPREDNISolone SOD SUCC 40 MG/ML VIAL IVP SCH (08:56)
[2019-11-25] MEDS: MESALAMINE 400 MG CAPSULE.DR PO SCH ×2 (08:57→21:30)
[2019-11-25] MEDS: ACETAMINOPHEN 325 MG TABLET PO PRN ×3 (09:19→21:29)
[2019-11-25] MEDS: LEVOFLOXACIN 500 MG/D5W 100 ML IV SCH (10:58)
[2019-11-25] MEDS: D10W 1,000 ML IV SCH ×2 (12:27→18:32)
[2019-11-25] MEDS ORDERED: POTASSIUM CHLORIDE 20 MEQ TAB.PRT.SR PO ONE (18:45)
[2019-11-25] MEDS: ONDANSETRON HCL 4 MG/2 ML VIAL IVP PRN (21:29)
[2019-11-26 00:34] VITALS: BP_SYST 150
[2019-11-26] MEDS: ACETAMINOPHEN 325 MG TABLET PO PRN ×5 (01:31→21:19)
[2019-11-26 07:56] VITALS: BP_SYST 157
[2019-11-26 08:14] LABS: ALBUMIN 1.8 g/dL (3.4-4.8); CALCIUM 7.7 mg/dL (8.4-11.0); CREATININE 0.98 mg/dL (0.55-1.30); TOTAL BILIRUBIN 1.4 mg/dL (0.0-1.0)
[2019-11-26] MEDS: methylPREDNISolone SOD SUCC 40 MG/ML VIAL IVP SCH (08:39)
[2019-11-26] MEDS: MESALAMINE 400 MG CAPSULE.DR PO SCH ×2 (08:39→20:12)
[2019-11-26] MEDS: metroNIDAZOLE 500 mg/NS 100 ML IV SCH ×2 (08:39→20:12)
[2019-11-26] MEDS: PANTOPRAZOLE SODIUM 40 MG/VIAL (PROTONIX) IVP SCH ×2 (08:39→20:12)
[2019-11-26] MEDS ORDERED: PREDNISONE 20 MG TABLET PO ONE (09:15)
[2019-11-26] MEDS: LEVOFLOXACIN 500 MG/D5W 100 ML IV SCH (10:07)
[2019-11-26 11:20] LABS: BASOPHILS % (AUTO) 0.1 % (0.0-2.0); HEMATOCRIT 28.6 % (36-54); HEMOGLOBIN 8.7 g/dL (14.0-18.0); LYMPHOCYTES # (AUTO) 0.4 K/uL (1.0-5.5); LYMPHOCYTES % (AUTO) 4.3 % (20.5-51.5); MEAN CORPUSCULAR HEMOGLOBIN 23 pg (27-31); MEAN CORPUSCULAR HGB CONC 30 % (32-36); MEAN CORPUSCULAR VOLUME 77 fL (79.0-98.0); MONOCYTES # (AUTO) 0.5 K/uL (0.0-1.0); MONOCYTES % (AUTO) 4.9 % (1.7-9.3); NEUTROPHILS # (AUTO) 9.3 K/uL (1.8-7.7); NEUTROPHILS % (AUTO) 90.7 % (40.0-70.0); PLATELET COUNT (AUTO) 140 K/uL (130-430); RED BLOOD CELL COUNT(AUTO) 3.71 MIL/uL (4.2-6.2); RED CELL DISTRIBUTION WIDTH 22.8 % (9.0-15.0); WHITE BLOOD COUNT (AUTO) 10.2 K/uL (4.8-10.8)
[2019-11-26 12:45] VITALS: BP_SYST 137
[2019-11-26] MEDS: D10W 1,000 ML IV SCH (13:18)
[2019-11-26 13:40] VITALS: BP_SYST 137
[2019-11-26] MEDS: INSULIN REGULAR, HUMAN 100 UNITS/ML, 10 ML VIAL (humuLIN R) SUBCUT PRN (16:33)
[2019-11-26 16:35] VITALS: BP_SYST 130
[2019-11-26 19:40] VITALS: BP_SYST 142
[2019-11-27 00:03] VITALS: BP_SYST 139
[2019-11-27] MEDS: ACETAMINOPHEN 325 MG TABLET PO PRN ×5 (01:55→20:47)
[2019-11-27] MEDS: D10W 1,000 ML IV SCH (03:53)
[2019-11-27 07:56] LABS: BASOPHILS % (AUTO) 0.2 % (0.0-2.0); EOSINOPHILS % (AUTO) 0.1 % (0.0-4.0); HEMATOCRIT 31.7 % (36-54); HEMOGLOBIN 9.3 g/dL (14.0-18.0); LYMPHOCYTES # (AUTO) 2.7 K/uL (1.0-5.5); LYMPHOCYTES % (AUTO) 20.6 % (20.5-51.5); MEAN CORPUSCULAR HEMOGLOBIN 23 pg (27-31); MEAN CORPUSCULAR HGB CONC 29 % (32-36); MEAN CORPUSCULAR VOLUME 78 fL (79.0-98.0); MONOCYTES # (AUTO) 1.2 K/uL (0.0-1.0); MONOCYTES % (AUTO) 9.2 % (1.7-9.3); NEUTROPHILS # (AUTO) 9.2 K/uL (1.8-7.7); NEUTROPHILS % (AUTO) 69.9 % (40.0-70.0); PLATELET COUNT (AUTO) 143 K/uL (130-430); RED BLOOD CELL COUNT(AUTO) 4.06 MIL/uL (4.2-6.2); WHITE BLOOD COUNT (AUTO) 13.1 K/uL (4.8-10.8)
[2019-11-27 08:00] VITALS: BP_SYST 158
[2019-11-27 08:16] LABS: ALBUMIN 2.2 g/dL (3.4-4.8); CALCIUM 7.8 mg/dL (8.4-11.0); CREATININE 0.9 mg/dL (0.55-1.30); POTASSIUM 3.8 mmol/L (3.5-5.1); TOTAL BILIRUBIN 1.5 mg/dL (0.0-1.0)
[2019-11-27 08:28] LABS: RED CELL DISTRIBUTION WIDTH 22.7 % (9.0-15.0)
[2019-11-27] MEDS: PREDNISONE 20 MG TABLET PO SCH (08:59)
[2019-11-27] MEDS: MESALAMINE 400 MG CAPSULE.DR PO SCH ×2 (08:59→20:28)
[2019-11-27] MEDS: PANTOPRAZOLE SODIUM 40 MG/VIAL (PROTONIX) IVP SCH ×2 (08:59→20:29)
[2019-11-27] MEDS: metroNIDAZOLE 500 mg/NS 100 ML IV SCH ×2 (08:59→20:29)
[2019-11-27] MEDS: LEVOFLOXACIN 500 MG/D5W 100 ML IV SCH (10:06)
[2019-11-27 12:12] VITALS: BP_SYST 147
[2019-11-27 16:20] VITALS: BP_SYST 129
[2019-11-27] MEDS: INSULIN REGULAR, HUMAN 100 UNITS/ML, 10 ML VIAL (humuLIN R) SUBCUT PRN ×2 (17:58→20:46)
[2019-11-27 19:50] VITALS: BP_SYST 147
[2019-11-28] MEDS: ACETAMINOPHEN 325 MG TABLET PO PRN ×4 (00:58→20:52)
[2019-11-28] MEDS ORDERED: HYDROcodone/ACETAMIN 5-325 MG TAB (NORCO/ VICODIN) PO ONE (03:30)
[2019-11-28 04:15] VITALS: BP_SYST 145
[2019-11-28 07:19] LABS: BASOPHILS % (AUTO) 0.2 % (0.0-2.0); EOSINOPHILS % (AUTO) 0.2 % (0.0-4.0); HEMATOCRIT 30.5 % (36-54); HEMOGLOBIN 8.9 g/dL (14.0-18.0); LYMPHOCYTES # (AUTO) 3.2 K/uL (1.0-5.5); LYMPHOCYTES % (AUTO) 25.4 % (20.5-51.5); MEAN CORPUSCULAR HEMOGLOBIN 23 pg (27-31); MEAN CORPUSCULAR HGB CONC 29 % (32-36); MEAN CORPUSCULAR VOLUME 78 fL (79.0-98.0); MONOCYTES # (AUTO) 1.3 K/uL (0.0-1.0); MONOCYTES % (AUTO) 10.3 % (1.7-9.3); NEUTROPHILS # (AUTO) 8.1 K/uL (1.8-7.7); NEUTROPHILS % (AUTO) 63.9 % (40.0-70.0); PLATELET COUNT (AUTO) 133 K/uL (130-430); RED BLOOD CELL COUNT(AUTO) 3.93 MIL/uL (4.2-6.2); RED CELL DISTRIBUTION WIDTH 22.9 % (9.0-15.0); WHITE BLOOD COUNT (AUTO) 12.6 K/uL (4.8-10.8)
[2019-11-28 07:25] LABS: C-REACTIVE PROTEIN QUANT 2.3 mg/dL (0-0.5); CALCIUM 8.1 mg/dL (8.4-11.0); CREATININE 0.99 mg/dL (0.55-1.30); POTASSIUM 3.8 mmol/L (3.5-5.1)
[2019-11-28 08:00] VITALS: BP_SYST 146
[2019-11-28 08:10] LABS: ERYTHROCYTE SEDIMENTATION RATE 5 MM/HR (0-15)
[2019-11-28] MEDS: metroNIDAZOLE 500 mg/NS 100 ML IV SCH ×2 (08:51→20:52)
[2019-11-28] MEDS: PANTOPRAZOLE SODIUM 40 MG/VIAL (PROTONIX) IVP SCH ×2 (08:52→20:52)
[2019-11-28] MEDS: PREDNISONE 20 MG TABLET PO SCH (08:52)
[2019-11-28] MEDS: MESALAMINE 400 MG CAPSULE.DR PO SCH ×3 (08:52→20:52)
[2019-11-28] MEDS: LEVOFLOXACIN 500 MG/D5W 100 ML IV SCH (10:42)
[2019-11-28] MEDS: INSULIN REGULAR, HUMAN 100 UNITS/ML, 10 ML VIAL (humuLIN R) SUBCUT PRN ×2 (11:33→20:59)
[2019-11-28 12:25] VITALS: BP_SYST 141
[2019-11-28] MEDS: D10W 1,000 ML IV SCH (12:39)
[2019-11-28 16:20] VITALS: BP_SYST 150
[2019-11-28 20:00] VITALS: BP_SYST 153
[2019-11-28 23:57] VITALS: BP_SYST 158
[2019-11-29] MEDS: ACETAMINOPHEN 325 MG TABLET PO PRN ×2 (02:07→09:41)
[2019-11-29] MEDS: D10W 1,000 ML IV SCH (03:45)
[2019-11-29] MEDS ORDERED: HYDROcodone/ACETAMIN 5-325 MG TAB (NORCO/ VICODIN) PO ONE (05:15)
[2019-11-29 07:50] LABS: BASOPHILS % (AUTO) 0.2 % (0.0-2.0); EOSINOPHILS % (AUTO) 0.1 % (0.0-4.0); HEMATOCRIT 29.1 % (36-54); HEMOGLOBIN 8.7 g/dL (14.0-18.0); LYMPHOCYTES # (AUTO) 2.8 K/uL (1.0-5.5); LYMPHOCYTES % (AUTO) 25.4 % (20.5-51.5); MEAN CORPUSCULAR HEMOGLOBIN 23 pg (27-31); MEAN CORPUSCULAR HGB CONC 30 % (32-36); MEAN CORPUSCULAR VOLUME 78 fL (79.0-98.0); MONOCYTES # (AUTO) 1.2 K/uL (0.0-1.0); NEUTROPHILS # (AUTO) 6.9 K/uL (1.8-7.7); NEUTROPHILS % (AUTO) 63.3 % (40.0-70.0); PLATELET COUNT (AUTO) 131 K/uL (130-430); RED BLOOD CELL COUNT(AUTO) 3.75 MIL/uL (4.2-6.2); WHITE BLOOD COUNT (AUTO) 10.9 K/uL (4.8-10.8)
[2019-11-29 08:00] VITALS: BP_SYST 140
[2019-11-29 08:13] LABS: ALBUMIN 2.3 g/dL (3.4-4.8); C-REACTIVE PROTEIN QUANT 2.2 mg/dL (0-0.5); CREATININE 0.93 mg/dL (0.55-1.30); TOTAL BILIRUBIN 1.6 mg/dL (0.0-1.0)
[2019-11-29 08:22] LABS: RED CELL DISTRIBUTION WIDTH 22.9 % (9.0-15.0)
[2019-11-29] MEDS: MESALAMINE 400 MG CAPSULE.DR PO SCH ×3 (09:16→22:02)
[2019-11-29] MEDS: PANTOPRAZOLE SODIUM 40 MG/VIAL (PROTONIX) IVP SCH ×2 (09:16→22:03)
[2019-11-29] MEDS: PREDNISONE 20 MG TABLET PO SCH (09:17)
[2019-11-29] MEDS: metroNIDAZOLE 500 mg/NS 100 ML IV SCH (09:18)
[2019-11-29 10:13] LABS: ERYTHROCYTE SEDIMENTATION RATE 7 MM/HR (0-15)
[2019-11-29] MEDS: LEVOFLOXACIN 500 MG/D5W 100 ML IV SCH (11:29)
[2019-11-29] MEDS: LORazepam 1 MG TABLET PO PRN ×2 (11:29→16:05)
[2019-11-29] MEDS ORDERED: IOHEXOL 350 mgI/mL, 150 ML INFUS..BTL IV ONE (11:59)
[2019-11-29 12:00] VITALS: BP_SYST 148
[2019-11-29] MEDS: VANCOMYCIN HCL ORAL SOLUTION 250 MG/5 ML, 80 ML PO SCH ×3 (14:34→21:59)
[2019-11-29 16:30] VITALS: BP_SYST 140
[2019-11-29] MEDS: INSULIN REGULAR, HUMAN 100 UNITS/ML, 10 ML VIAL (humuLIN R) SUBCUT PRN ×2 (16:53→22:07)
[2019-11-29] MEDS: LACTOBACILLUS RHAMNOSUS GG 1 CAP CAPSULE PO SCH (22:03)
[2019-11-30 00:27] VITALS: BP_SYST 145
[2019-11-30] MEDS: LORazepam 1 MG TABLET PO PRN (01:36)
[2019-11-30 04:00] VITALS: BP_SYST 149
[2019-11-30 07:00] LABS: BASOPHILS # (AUTO) 0.1 K/uL (0.0-0.2); BASOPHILS % (AUTO) 0.5 % (0.0-2.0); HEMATOCRIT 28.9 % (36-54); HEMOGLOBIN 8.6 g/dL (14.0-18.0); LYMPHOCYTES # (AUTO) 2.7 K/uL (1.0-5.5); LYMPHOCYTES % (AUTO) 22.8 % (20.5-51.5); MEAN CORPUSCULAR HEMOGLOBIN 23 pg (27-31); MEAN CORPUSCULAR HGB CONC 30 % (32-36); MEAN CORPUSCULAR VOLUME 77 fL (79.0-98.0); MONOCYTES # (AUTO) 1.5 K/uL (0.0-1.0); MONOCYTES % (AUTO) 12.7 % (1.7-9.3); NEUTROPHILS # (AUTO) 7.4 K/uL (1.8-7.7); PLATELET COUNT (AUTO) 127 K/uL (130-430); RED BLOOD CELL COUNT(AUTO) 3.75 MIL/uL (4.2-6.2); RED CELL DISTRIBUTION WIDTH 22.8 % (9.0-15.0); WHITE BLOOD COUNT (AUTO) 11.6 K/uL (4.8-10.8)
[2019-11-30 07:36] LABS: ALBUMIN 2.2 g/dL (3.4-4.8); C-REACTIVE PROTEIN QUANT 2.8 mg/dL (0-0.5); CALCIUM 8.1 mg/dL (8.4-11.0); CREATININE 0.89 mg/dL (0.55-1.30); POTASSIUM 4.2 mmol/L (3.5-5.1); TOTAL BILIRUBIN 1.9 mg/dL (0.0-1.0)
[2019-11-30 08:00] VITALS: BP_SYST 144
[2019-11-30 08:45] LABS: ERYTHROCYTE SEDIMENTATION RATE 6 MM/HR (0-15)
[2019-11-30] MEDS: VANCOMYCIN HCL ORAL SOLUTION 250 MG/5 ML, 80 ML PO SCH ×4 (09:00→20:46)
[2019-11-30] MEDS: MESALAMINE 400 MG CAPSULE.DR PO SCH ×3 (09:00→20:46)
[2019-11-30] MEDS: LACTOBACILLUS RHAMNOSUS GG 1 CAP CAPSULE PO SCH ×2 (10:19→20:46)
[2019-11-30] MEDS: PANTOPRAZOLE SODIUM 40 MG/VIAL (PROTONIX) IVP SCH ×2 (10:19→20:46)
[2019-11-30] MEDS: PREDNISONE 20 MG TABLET PO SCH (10:20)
[2019-11-30] MEDS: ACETAMINOPHEN 325 MG TABLET PO PRN ×2 (10:25→20:55)
[2019-11-30 12:45] VITALS: BP_SYST 132
[2019-11-30] MEDS: D10W 1,000 ML IV SCH (14:12)
[2019-11-30 16:33] VITALS: BP_SYST 137
[2019-11-30 20:00] VITALS: BP_SYST 142
[2019-11-30] MEDS: ONDANSETRON HCL 4 MG/2 ML VIAL IVP PRN (20:56)
[2019-12-01] MEDS ORDERED: HYDROcodone/ACETAMIN 5-325 MG TAB (NORCO/ VICODIN) PO ONE (02:15)
[2019-12-01 02:53] VITALS: BP_SYST 147
[2019-12-01] MEDS: ACETAMINOPHEN 325 MG TABLET PO PRN ×3 (06:06→21:43)
[2019-12-01] MEDS: LORazepam 1 MG TABLET PO PRN (06:06)
[2019-12-01] MEDS: D10W 1,000 ML IV SCH (06:07)
[2019-12-01 08:00] VITALS: BP_SYST 141
[2019-12-01] MEDS: MESALAMINE 400 MG CAPSULE.DR PO SCH ×3 (09:00→21:40)
[2019-12-01] MEDS: VANCOMYCIN HCL ORAL SOLUTION 250 MG/5 ML, 80 ML PO SCH ×4 (09:29→21:40)
[2019-12-01] MEDS: PREDNISONE 20 MG TABLET PO SCH (09:29)
[2019-12-01] MEDS: LACTOBACILLUS RHAMNOSUS GG 1 CAP CAPSULE PO SCH ×2 (09:29→21:40)
[2019-12-01] MEDS: PANTOPRAZOLE SODIUM 40 MG/VIAL (PROTONIX) IVP SCH ×2 (09:29→21:41)
[2019-12-01 11:16] LABS: ATYPICAL pANCA <1:20 titer (Neg:<1:20); CYTOPLASMIC (C-ANCA) <1:20 titer (Neg:<1:20); CYTOPLASMIC (P-ANCA) <1:20 titer (Neg:<1:20)
[2019-12-01 12:00] VITALS: BP_SYST 129
[2019-12-01 16:56] VITALS: BP_SYST 119
[2019-12-01 20:00] VITALS: BP_SYST 132
[2019-12-02 01:48] VITALS: BP_SYST 120
[2019-12-02] MEDS ORDERED: HYDROcodone/ACETAMIN 5-325 MG TAB (NORCO/ VICODIN) PO ONE (04:30)
[2019-12-02] MEDS: INSULIN REGULAR, HUMAN 100 UNITS/ML, 10 ML VIAL (humuLIN R) SUBCUT PRN ×2 (06:10→21:45)
[2019-12-02 07:21] LABS: BASOPHILS % (AUTO) 0.4 % (0.0-2.0); HEMATOCRIT 30.8 % (36-54); LYMPHOCYTES # (AUTO) 1.4 K/uL (1.0-5.5); LYMPHOCYTES % (AUTO) 11.6 % (20.5-51.5); MEAN CORPUSCULAR HEMOGLOBIN 23 pg (27-31); MEAN CORPUSCULAR HGB CONC 29 % (32-36); MEAN CORPUSCULAR VOLUME 78 fL (79.0-98.0); MONOCYTES % (AUTO) 8.6 % (1.7-9.3); NEUTROPHILS # (AUTO) 9.6 K/uL (1.8-7.7); NEUTROPHILS % (AUTO) 79.4 % (40.0-70.0); PLATELET COUNT (AUTO) 97 K/uL (130-430); RED BLOOD CELL COUNT(AUTO) 3.97 MIL/uL (4.2-6.2); WHITE BLOOD COUNT (AUTO) 12.1 K/uL (4.8-10.8)
[2019-12-02 07:43] LABS: ALBUMIN 2.3 g/dL (3.4-4.8); CALCIUM 8.4 mg/dL (8.4-11.0); CREATININE 1.17 mg/dL (0.55-1.30); TOTAL BILIRUBIN 3.8 mg/dL (0.0-1.0)
[2019-12-02] MEDS: PANTOPRAZOLE SODIUM 40 MG/VIAL (PROTONIX) IVP SCH (09:00)
[2019-12-02] MEDS: LACTOBACILLUS RHAMNOSUS GG 1 CAP CAPSULE PO SCH ×2 (09:51→21:27)
[2019-12-02] MEDS: ACETAMINOPHEN 325 MG TABLET PO PRN ×3 (09:52→21:27)
[2019-12-02] MEDS: PREDNISONE 20 MG TABLET PO SCH (09:52)
[2019-12-02] MEDS: MESALAMINE 400 MG CAPSULE.DR PO SCH ×3 (09:53→21:26)
[2019-12-02] MEDS: VANCOMYCIN HCL ORAL SOLUTION 250 MG/5 ML, 80 ML PO SCH ×4 (09:53→21:30)
[2019-12-02 12:25] VITALS: BP_SYST 127
[2019-12-02 16:23] VITALS: BP_SYST 152
[2019-12-02 20:10] VITALS: BP_SYST 148
[2019-12-03 01:08] VITALS: BP_SYST 141
[2019-12-03] MEDS ORDERED: HYDROcodone/ACETAMIN 5-325 MG TAB (NORCO/ VICODIN) PO ONE (05:30)
[2019-12-03] MEDS: D10W 1,000 ML IV SCH ×2 (05:50→12:09)
[2019-12-03] MEDS: MESALAMINE 400 MG CAPSULE.DR PO SCH ×3 (08:37→20:50)
[2019-12-03] MEDS: VANCOMYCIN HCL ORAL SOLUTION 250 MG/5 ML, 80 ML PO SCH ×4 (08:38→20:50)
[2019-12-03] MEDS: LACTOBACILLUS RHAMNOSUS GG 1 CAP CAPSULE PO SCH ×2 (08:38→20:50)
[2019-12-03] MEDS: FAMOTIDINE 20 MG TABLET PO SCH (08:38)
[2019-12-03] MEDS: PREDNISONE 10 MG TABLET PO SCH (08:38)
[2019-12-03] MEDS ORDERED: PANTOPRAZOLE SODIUM 40 MG TAB PO SCH (09:00)
[2019-12-03 11:35] LABS: ANTI-SMOOTH MUSCLE AB 33 Units (0-19)
[2019-12-03 12:03] VITALS: BP_SYST 144
[2019-12-03] MEDS: ACETAMINOPHEN 325 MG TABLET PO PRN (15:56)
[2019-12-03 16:20] VITALS: BP_SYST 140
[2019-12-03] MEDS: INSULIN REGULAR, HUMAN 100 UNITS/ML, 10 ML VIAL (humuLIN R) SUBCUT PRN ×2 (18:59→21:01)
[2019-12-03 20:00] VITALS: BP_SYST 142
[2019-12-04 00:29] VITALS: BP_SYST 158
[2019-12-04] MEDS: ACETAMINOPHEN 325 MG TABLET PO PRN (04:17)
[2019-12-04 07:44] LABS: BASOPHILS % (AUTO) 0.2 % (0.0-2.0); HEMOGLOBIN 9.3 g/dL (14.0-18.0); LYMPHOCYTES # (AUTO) 1.6 K/uL (1.0-5.5); MONOCYTES # (AUTO) 0.8 K/uL (0.0-1.0)
[2019-12-04 07:50] LABS: ALBUMIN 2.2 g/dL (3.4-4.8); CALCIUM 7.7 mg/dL (8.4-11.0); CREATININE 0.62 mg/dL (0.55-1.30); POTASSIUM 3.9 mmol/L (3.5-5.1); TOTAL BILIRUBIN 2.5 mg/dL (0.0-1.0)
[2019-12-04 08:00] VITALS: BP_SYST 142
[2019-12-04 08:11] LABS: EOSINOPHILS % (AUTO) 0.1 % (0.0-4.0); HEMATOCRIT 31.3 % (36-54); LYMPHOCYTES % (AUTO) 15.1 % (20.5-51.5); MEAN CORPUSCULAR HEMOGLOBIN 23 pg (27-31); MEAN CORPUSCULAR HGB CONC 30 % (32-36); MEAN CORPUSCULAR VOLUME 76 fL (79.0-98.0); MONOCYTES % (AUTO) 7.7 % (1.7-9.3); NEUTROPHILS # (AUTO) 8.1 K/uL (1.8-7.7); NEUTROPHILS % (AUTO) 76.9 % (40.0-70.0); RED CELL DISTRIBUTION WIDTH 22.9 % (9.0-15.0); WHITE BLOOD COUNT (AUTO) 10.6 K/uL (4.8-10.8)
[2019-12-04] MEDS ORDERED: LORazepam 1 MG TABLET PO ONE (08:30)
[2019-12-04] MEDS: PREDNISONE 10 MG TABLET PO SCH (08:36)
[2019-12-04] MEDS: FAMOTIDINE 20 MG TABLET PO SCH (08:36)
[2019-12-04 08:38] LABS: PLATELET COUNT (AUTO) 60 K/uL (130-430)
[2019-12-04] MEDS: MESALAMINE 400 MG CAPSULE.DR PO SCH ×3 (08:38→20:25)
[2019-12-04] MEDS: VANCOMYCIN HCL ORAL SOLUTION 250 MG/5 ML, 80 ML PO SCH ×4 (08:38→20:24)
[2019-12-04] MEDS: LACTOBACILLUS RHAMNOSUS GG 1 CAP CAPSULE PO SCH ×2 (08:38→20:24)
[2019-12-04 12:00] VITALS: BP_SYST 152
[2019-12-04] MEDS: FOLIC ACID 1 MG TABLET PO SCH (12:01)
[2019-12-04] MEDS: THIAMINE HCL 100 MG TABLET PO SCH (12:01)
[2019-12-04] MEDS: traMADol HCL HCL 50 MG TABLET (ULTRAM) PO PRN ×2 (12:21→22:19)
[2019-12-04] MEDS: D10W 1,000 ML IV SCH (13:18)
[2019-12-04 16:24] VITALS: BP_SYST 161
[2019-12-04 20:00] VITALS: BP_SYST 147
[2019-12-04] MEDS: INSULIN REGULAR, HUMAN 100 UNITS/ML, 10 ML VIAL (humuLIN R) SUBCUT PRN (20:33)
[2019-12-05 00:26] VITALS: BP_SYST 142
[2019-12-05] MEDS: traMADol HCL HCL 50 MG TABLET (ULTRAM) PO PRN ×4 (06:16→23:28)
[2019-12-05] MEDS: D10W 1,000 ML IV SCH (06:25)
[2019-12-05 09:27] VITALS: BP_SYST 138
[2019-12-05] MEDS: PREDNISONE 10 MG TABLET PO SCH (10:27)
[2019-12-05] MEDS: VANCOMYCIN HCL ORAL SOLUTION 250 MG/5 ML, 80 ML PO SCH ×4 (10:27→20:46)
[2019-12-05] MEDS: MESALAMINE 400 MG CAPSULE.DR PO SCH ×3 (10:27→20:44)
[2019-12-05] MEDS: LACTOBACILLUS RHAMNOSUS GG 1 CAP CAPSULE PO SCH ×2 (10:28→20:45)
[2019-12-05] MEDS: FOLIC ACID 1 MG TABLET PO SCH (10:28)
[2019-12-05] MEDS: THIAMINE HCL 100 MG TABLET PO SCH (10:29)
[2019-12-05] MEDS: FAMOTIDINE 20 MG TABLET PO SCH (10:29)
[2019-12-05 12:00] VITALS: BP_SYST 152
[2019-12-05 16:49] VITALS: BP_SYST 154
[2019-12-05] MEDS: ACETAMINOPHEN 325 MG TABLET PO PRN ×2 (17:00→23:37)
[2019-12-05] MEDS: INSULIN REGULAR, HUMAN 100 UNITS/ML, 10 ML VIAL (humuLIN R) SUBCUT PRN (17:02)
[2019-12-05 19:00] VITALS: BP_SYST 134
[2019-12-06 01:26] VITALS: BP_SYST 146
[2019-12-06] MEDS: traMADol HCL HCL 50 MG TABLET (ULTRAM) PO PRN ×2 (07:09→16:44)
[2019-12-06] MEDS: INSULIN REGULAR, HUMAN 100 UNITS/ML, 10 ML VIAL (humuLIN R) SUBCUT PRN ×2 (07:10→18:57)
[2019-12-06] MEDS: MESALAMINE 400 MG CAPSULE.DR PO SCH ×3 (09:42→22:43)
[2019-12-06] MEDS: PREDNISONE 10 MG TABLET PO SCH (09:43)
[2019-12-06] MEDS: FAMOTIDINE 20 MG TABLET PO SCH (09:43)
[2019-12-06] MEDS: THIAMINE HCL 100 MG TABLET PO SCH (09:43)
[2019-12-06] MEDS: FOLIC ACID 1 MG TABLET PO SCH (09:43)
[2019-12-06] MEDS: LACTOBACILLUS RHAMNOSUS GG 1 CAP CAPSULE PO SCH ×2 (09:44→21:08)
[2019-12-06] MEDS: VANCOMYCIN HCL ORAL SOLUTION 250 MG/5 ML, 80 ML PO SCH ×4 (09:46→21:08)
[2019-12-06 10:33] LABS: BASOPHILS # (AUTO) 0.1 K/uL (0.0-0.2); BASOPHILS % (AUTO) 0.7 % (0.0-2.0); EOSINOPHILS % (AUTO) 0.1 % (0.0-4.0); HEMATOCRIT 31.6 % (36-54); HEMOGLOBIN 9.1 g/dL (14.0-18.0); LYMPHOCYTES # (AUTO) 1.8 K/uL (1.0-5.5); LYMPHOCYTES % (AUTO) 14.6 % (20.5-51.5); MEAN CORPUSCULAR HEMOGLOBIN 22 pg (27-31); MEAN CORPUSCULAR HGB CONC 29 % (32-36); MEAN CORPUSCULAR VOLUME 77 fL (79.0-98.0); MONOCYTES # (AUTO) 0.8 K/uL (0.0-1.0); MONOCYTES % (AUTO) 6.5 % (1.7-9.3); NEUTROPHILS # (AUTO) 9.8 K/uL (1.8-7.7); NEUTROPHILS % (AUTO) 78.1 % (40.0-70.0); PLATELET COUNT (AUTO) 75 K/uL (130-430); RED CELL DISTRIBUTION WIDTH 22.6 % (9.0-15.0); WHITE BLOOD COUNT (AUTO) 12.5 K/uL (4.8-10.8)
[2019-12-06 11:08] LABS: ALBUMIN 2.3 g/dL (3.4-4.8); CALCIUM 8.3 mg/dL (8.4-11.0); CREATININE 0.75 mg/dL (0.55-1.30); POTASSIUM 4.1 mmol/L (3.5-5.1)
[2019-12-06] MEDS: D10W 1,000 ML IV SCH (12:07)
[2019-12-06 12:20] VITALS: BP_SYST 138
[2019-12-06 16:17] VITALS: BP_SYST 142
[2019-12-06 20:00] VITALS: BP_SYST 135
[2019-12-07] MEDS: ACETAMINOPHEN 325 MG TABLET PO PRN ×3 (01:02→21:07)
[2019-12-07] MEDS: traMADol HCL HCL 50 MG TABLET (ULTRAM) PO PRN ×2 (02:20→15:16)
[2019-12-07 03:29] VITALS: BP_SYST 154
[2019-12-07 08:04] VITALS: BP_SYST 131
[2019-12-07] MEDS: LACTOBACILLUS RHAMNOSUS GG 1 CAP CAPSULE PO SCH ×2 (09:03→21:03)
[2019-12-07] MEDS: FAMOTIDINE 20 MG TABLET PO SCH (09:03)
[2019-12-07] MEDS: MESALAMINE 400 MG CAPSULE.DR PO SCH ×3 (09:03→21:05)
[2019-12-07] MEDS: THIAMINE HCL 100 MG TABLET PO SCH (09:03)
[2019-12-07] MEDS: FOLIC ACID 1 MG TABLET PO SCH (09:03)
[2019-12-07] MEDS: VANCOMYCIN HCL ORAL SOLUTION 250 MG/5 ML, 80 ML PO SCH ×4 (09:04→21:00)
[2019-12-07] MEDS: PREDNISONE 10 MG TABLET PO SCH (11:28)
[2019-12-07 12:00] VITALS: BP_SYST 139
[2019-12-07] MEDS: D10W 1,000 ML IV SCH (12:50)
[2019-12-07 16:47] VITALS: BP_SYST 138
[2019-12-07 20:00] VITALS: BP_SYST 133
[2019-12-08 01:18] VITALS: BP_SYST 143
[2019-12-08] MEDS: traMADol HCL HCL 50 MG TABLET (ULTRAM) PO PRN ×2 (01:36→14:51)
[2019-12-08] MEDS: ACETAMINOPHEN 325 MG TABLET PO PRN ×4 (03:19→23:16)
[2019-12-08 06:46] LABS: BASOPHILS # (AUTO) 0.1 K/uL (0.0-0.2); BASOPHILS % (AUTO) 0.6 % (0.0-2.0); EOSINOPHILS % (AUTO) 0.1 % (0.0-4.0); HEMATOCRIT 31.6 % (36-54); HEMOGLOBIN 9.1 g/dL (14.0-18.0); LYMPHOCYTES # (AUTO) 1.6 K/uL (1.0-5.5); LYMPHOCYTES % (AUTO) 9.8 % (20.5-51.5); MEAN CORPUSCULAR HEMOGLOBIN 22 pg (27-31); MEAN CORPUSCULAR HGB CONC 29 % (32-36); MEAN CORPUSCULAR VOLUME 77 fL (79.0-98.0); MONOCYTES # (AUTO) 1.2 K/uL (0.0-1.0); MONOCYTES % (AUTO) 7.4 % (1.7-9.3); NEUTROPHILS # (AUTO) 13.3 K/uL (1.8-7.7); NEUTROPHILS % (AUTO) 82.1 % (40.0-70.0); PLATELET COUNT (AUTO) 100 K/uL (130-430); RED BLOOD CELL COUNT(AUTO) 4.11 MIL/uL (4.2-6.2); RED CELL DISTRIBUTION WIDTH 23.2 % (9.0-15.0); WHITE BLOOD COUNT (AUTO) 16.2 K/uL (4.8-10.8)
[2019-12-08 06:49] LABS: ALBUMIN 2.2 g/dL (3.4-4.8); C-REACTIVE PROTEIN QUANT 4.7 mg/dL (0-0.5); CREATININE 0.73 mg/dL (0.55-1.30)
[2019-12-08] MEDS: THIAMINE HCL 100 MG TABLET PO SCH (08:13)
[2019-12-08] MEDS: FAMOTIDINE 20 MG TABLET PO SCH (08:13)
[2019-12-08] MEDS: FOLIC ACID 1 MG TABLET PO SCH (08:13)
[2019-12-08] MEDS: LACTOBACILLUS RHAMNOSUS GG 1 CAP CAPSULE PO SCH ×2 (08:14→20:59)
[2019-12-08] MEDS: PREDNISONE 10 MG TABLET PO SCH (08:14)
[2019-12-08] MEDS: MESALAMINE 400 MG CAPSULE.DR PO SCH ×3 (08:15→20:59)
[2019-12-08] MEDS: VANCOMYCIN HCL ORAL SOLUTION 250 MG/5 ML, 80 ML PO SCH ×4 (08:20→20:59)
[2019-12-08 08:22] VITALS: BP_SYST 150
[2019-12-08 08:26] LABS: ERYTHROCYTE SEDIMENTATION RATE 3 MM/HR (0-15)
[2019-12-08] MEDS ORDERED: DIATR MEGLU/DIATRIZ SOD 30 ML SOLUTION PO ONE (09:28)
[2019-12-08] MEDS ORDERED: IOHEXOL 100 ML IV ONE (11:08)
[2019-12-08] MEDS: D10W 1,000 ML IV SCH (12:37)
[2019-12-08 12:54] VITALS: BP_SYST 133
[2019-12-08] MEDS: INSULIN REGULAR, HUMAN 100 UNITS/ML, 10 ML VIAL (humuLIN R) SUBCUT PRN (17:16)
[2019-12-08 17:21] VITALS: BP_SYST 146
[2019-12-08 20:30] VITALS: BP_SYST 143
[2019-12-09 01:25] VITALS: BP_SYST 144
[2019-12-09] MEDS: traMADol HCL HCL 50 MG TABLET (ULTRAM) PO PRN ×2 (03:05→15:58)
[2019-12-09] MEDS: ACETAMINOPHEN 325 MG TABLET PO PRN ×2 (06:00→13:02)
[2019-12-09 06:26] LABS: BASOPHILS # (AUTO) 0.1 K/uL (0.0-0.2); BASOPHILS % (AUTO) 0.4 % (0.0-2.0); EOSINOPHILS % (AUTO) 0.1 % (0.0-4.0); HEMATOCRIT 33.4 % (36-54); HEMOGLOBIN 9.6 g/dL (14.0-18.0); LYMPHOCYTES # (AUTO) 2.3 K/uL (1.0-5.5); LYMPHOCYTES % (AUTO) 12.6 % (20.5-51.5); MEAN CORPUSCULAR HEMOGLOBIN 22 pg (27-31); MEAN CORPUSCULAR HGB CONC 29 % (32-36); MEAN CORPUSCULAR VOLUME 77 fL (79.0-98.0); MONOCYTES # (AUTO) 1.5 K/uL (0.0-1.0); MONOCYTES % (AUTO) 8.1 % (1.7-9.3); NEUTROPHILS # (AUTO) 14.2 K/uL (1.8-7.7); NEUTROPHILS % (AUTO) 78.8 % (40.0-70.0); PLATELET COUNT (AUTO) 126 K/uL (130-430); RED BLOOD CELL COUNT(AUTO) 4.35 MIL/uL (4.2-6.2); RED CELL DISTRIBUTION WIDTH 22.9 % (9.0-15.0)
[2019-12-09 07:00] LABS: ALBUMIN 2.3 g/dL (3.4-4.8); C-REACTIVE PROTEIN QUANT 5.8 mg/dL (0-0.5); CALCIUM 8.3 mg/dL (8.4-11.0); CREATININE 0.68 mg/dL (0.55-1.30); TOTAL BILIRUBIN 3.2 mg/dL (0.0-1.0)
[2019-12-09 07:49] LABS: ERYTHROCYTE SEDIMENTATION RATE 3 MM/HR (0-15)
[2019-12-09 08:00] VITALS: BP_SYST 132
[2019-12-09] MEDS: FOLIC ACID 1 MG TABLET PO SCH (08:18)
[2019-12-09] MEDS: FAMOTIDINE 20 MG TABLET PO SCH (08:18)
[2019-12-09] MEDS: MESALAMINE 400 MG CAPSULE.DR PO SCH ×3 (08:18→20:31)
[2019-12-09] MEDS: LACTOBACILLUS RHAMNOSUS GG 1 CAP CAPSULE PO SCH ×2 (08:18→20:31)
[2019-12-09] MEDS: PREDNISONE 10 MG TABLET PO SCH (08:18)
[2019-12-09] MEDS: THIAMINE HCL 100 MG TABLET PO SCH (08:18)
[2019-12-09] MEDS: VANCOMYCIN HCL ORAL SOLUTION 250 MG/5 ML, 80 ML PO SCH ×4 (08:19→20:36)
[2019-12-09] MEDS ORDERED: DULoxetine HCL 30 MG CAPSULE.DR (CYMBALTA) PO ONE (12:45)
[2019-12-09 12:48] VITALS: BP_SYST 143
[2019-12-09] MEDS: D10W 1,000 ML IV SCH (13:18)
[2019-12-09 17:12] VITALS: BP_SYST 150
[2019-12-09 20:30] VITALS: BP_SYST 152
[2019-12-10 00:47] VITALS: BP_SYST 163
[2019-12-10] MEDS: ACETAMINOPHEN 325 MG TABLET PO PRN (04:06)
[2019-12-10 08:00] VITALS: BP_SYST 157
[2019-12-10] MEDS: VANCOMYCIN HCL ORAL SOLUTION 250 MG/5 ML, 80 ML PO SCH ×4 (08:38→20:02)
[2019-12-10] MEDS: FAMOTIDINE 20 MG TABLET PO SCH (08:39)
[2019-12-10] MEDS: MESALAMINE 400 MG CAPSULE.DR PO SCH ×3 (08:39→20:02)
[2019-12-10] MEDS: LACTOBACILLUS RHAMNOSUS GG 1 CAP CAPSULE PO SCH ×2 (08:39→20:01)
[2019-12-10] MEDS: FOLIC ACID 1 MG TABLET PO SCH (08:39)
[2019-12-10] MEDS: THIAMINE HCL 100 MG TABLET PO SCH (08:39)
[2019-12-10] MEDS: PREDNISONE 10 MG TABLET PO SCH (08:39)
[2019-12-10] MEDS: traMADol HCL HCL 50 MG TABLET (ULTRAM) PO PRN (08:40)
[2019-12-10] MEDS: DULoxetine HCL 30 MG CAPSULE.DR (CYMBALTA) PO SCH (08:40)
[2019-12-10] MEDS ORDERED: GABAPENTIN 400 MG CAPSULE PO ONE (10:15)
[2019-12-10] MEDS: D10W 1,000 ML IV SCH (12:13)
[2019-12-10 12:20] LABS: BASOPHILS % (AUTO) 0.1 % (0.0-2.0); HEMATOCRIT 30.5 % (36-54); HEMOGLOBIN 8.7 g/dL (14.0-18.0); LYMPHOCYTES # (AUTO) 0.4 K/uL (1.0-5.5); LYMPHOCYTES % (AUTO) 2.9 % (20.5-51.5); MEAN CORPUSCULAR HEMOGLOBIN 22 pg (27-31); MEAN CORPUSCULAR HGB CONC 29 % (32-36); MEAN CORPUSCULAR VOLUME 78 fL (79.0-98.0); MONOCYTES # (AUTO) 0.8 K/uL (0.0-1.0); MONOCYTES % (AUTO) 6.4 % (1.7-9.3); NEUTROPHILS # (AUTO) 11.1 K/uL (1.8-7.7); NEUTROPHILS % (AUTO) 90.6 % (40.0-70.0); PLATELET COUNT (AUTO) 177 K/uL (130-430); RED BLOOD CELL COUNT(AUTO) 3.91 MIL/uL (4.2-6.2); RED CELL DISTRIBUTION WIDTH 22.9 % (9.0-15.0); WHITE BLOOD COUNT (AUTO) 12.3 K/uL (4.8-10.8)
[2019-12-10 12:28] LABS: C-REACTIVE PROTEIN QUANT 5.9 mg/dL (0-0.5); CALCIUM 7.8 mg/dL (8.4-11.0); CREATININE 0.89 mg/dL (0.55-1.30); POTASSIUM 4.4 mmol/L (3.5-5.1)
[2019-12-10 12:30] VITALS: BP_SYST 148
[2019-12-10] MEDS: GABAPENTIN 400 MG CAPSULE PO SCH ×2 (14:10→20:01)
[2019-12-10 17:13] VITALS: BP_SYST 143
[2019-12-10] MEDS ORDERED: FUROSEMIDE 40 MG/4 ML VIAL IVP ONE (17:15)
[2019-12-10 19:59] VITALS: BP_SYST 160
[2019-12-10] MEDS: FUROSEMIDE 40 MG/4 ML VIAL IVP SCH (20:02)
[2019-12-11 00:25] VITALS: BP_SYST 143
[2019-12-11 08:00] VITALS: BP_SYST 128
[2019-12-11 08:00] LABS: BASOPHILS # (AUTO) 0.1 K/uL (0.0-0.2); BASOPHILS % (AUTO) 0.5 % (0.0-2.0); EOSINOPHILS % (AUTO) 0.1 % (0.0-4.0); HEMATOCRIT 29.6 % (36-54); HEMOGLOBIN 8.7 g/dL (14.0-18.0); LYMPHOCYTES # (AUTO) 1.2 K/uL (1.0-5.5); LYMPHOCYTES % (AUTO) 9.5 % (20.5-51.5); MEAN CORPUSCULAR HEMOGLOBIN 22 pg (27-31); MEAN CORPUSCULAR HGB CONC 29 % (32-36); MEAN CORPUSCULAR VOLUME 76 fL (79.0-98.0); MONOCYTES # (AUTO) 0.9 K/uL (0.0-1.0); MONOCYTES % (AUTO) 7.3 % (1.7-9.3); NEUTROPHILS # (AUTO) 10.1 K/uL (1.8-7.7); NEUTROPHILS % (AUTO) 82.6 % (40.0-70.0); PLATELET COUNT (AUTO) 193 K/uL (130-430); RED BLOOD CELL COUNT(AUTO) 3.89 MIL/uL (4.2-6.2); RED CELL DISTRIBUTION WIDTH 23.3 % (9.0-15.0); WHITE BLOOD COUNT (AUTO) 12.3 K/uL (4.8-10.8)
[2019-12-11 08:12] LABS: ALANINE AMINOTRANSFERASE 63 U/L (12-78); ALBUMIN 2.1 g/dL (3.4-4.8); ASPARTATE AMINOTRANSFERASE 25 U/L (10-37); CALCIUM 7.7 mg/dL (8.4-11.0); CHLORIDE 96 mmol/L (98-107); CREATININE 0.66 mg/dL (0.55-1.30); GLUCOSE 131 mg/dL (70-99); POTASSIUM 3.5 mmol/L (3.5-5.1); SODIUM SERUM 130 mmol/L (136-145); TOTAL BILIRUBIN 3.5 mg/dL (0.0-1.0); UREA NITROGEN, BLOOD 17 mg/dL (8-21)
[2019-12-11 08:15] LABS: GFR AFRICAN AMERICAN 159 mL/min (>90)
[2019-12-11 08:16] LABS: ANION GAP < 3 (5-15)
[2019-12-11] MEDS: VANCOMYCIN HCL ORAL SOLUTION 250 MG/5 ML, 80 ML PO SCH ×4 (08:55→20:05)
[2019-12-11] MEDS: FOLIC ACID 1 MG TABLET PO SCH (08:56)
[2019-12-11] MEDS: LACTOBACILLUS RHAMNOSUS GG 1 CAP CAPSULE PO SCH ×2 (08:56→20:03)
[2019-12-11] MEDS: GABAPENTIN 400 MG CAPSULE PO SCH ×3 (08:56→20:03)
[2019-12-11] MEDS: THIAMINE HCL 100 MG TABLET PO SCH (08:56)
[2019-12-11] MEDS: MESALAMINE 400 MG CAPSULE.DR PO SCH ×3 (08:56→20:04)
[2019-12-11] MEDS: FAMOTIDINE 20 MG TABLET PO SCH (08:56)
[2019-12-11] MEDS: FUROSEMIDE 40 MG/4 ML VIAL IVP SCH ×2 (08:57→20:04)
[2019-12-11] MEDS: DULoxetine HCL 30 MG CAPSULE.DR (CYMBALTA) PO SCH (08:57)
[2019-12-11] MEDS: PREDNISONE 10 MG TABLET PO SCH (08:58)
[2019-12-11] MEDS: traMADol HCL HCL 50 MG TABLET (ULTRAM) PO PRN ×2 (10:49→19:59)
[2019-12-11 12:20] VITALS: BP_SYST 150
[2019-12-11] MEDS: D10W 1,000 ML IV SCH (12:23)
[2019-12-11 16:21] VITALS: BP_SYST 119
[2019-12-11 20:10] VITALS: BP_SYST 153
[2019-12-11] MEDS: INSULIN REGULAR, HUMAN 100 UNITS/ML, 10 ML VIAL (humuLIN R) SUBCUT PRN (20:20)
[2019-12-12] VITALS (7 sets, daily range): BP systolic 132–148
[2019-12-12] MEDS: traMADol HCL HCL 50 MG TABLET (ULTRAM) PO PRN ×2 (05:21→11:09)
[2019-12-12] MEDS: GABAPENTIN 400 MG CAPSULE PO SCH ×3 (08:43→21:00)
[2019-12-12] MEDS: DULoxetine HCL 30 MG CAPSULE.DR (CYMBALTA) PO SCH (08:43)
[2019-12-12] MEDS: PREDNISONE 10 MG TABLET PO SCH (08:44)
[2019-12-12] MEDS: MESALAMINE 400 MG CAPSULE.DR PO SCH ×3 (08:44→21:00)
[2019-12-12] MEDS: LACTOBACILLUS RHAMNOSUS GG 1 CAP CAPSULE PO SCH ×2 (08:44→21:00)
[2019-12-12] MEDS: FOLIC ACID 1 MG TABLET PO SCH (08:44)
[2019-12-12] MEDS: FAMOTIDINE 20 MG TABLET PO SCH (08:44)
[2019-12-12] MEDS: THIAMINE HCL 100 MG TABLET PO SCH (08:44)
[2019-12-12] MEDS: FUROSEMIDE 40 MG/4 ML VIAL IVP SCH ×2 (08:49→21:01)
[2019-12-12] MEDS: D10W 1,000 ML IV SCH (11:31)
[2019-12-12 12:14] LABS: CALCIUM 8.6 mg/dL (8.4-11.0); CREATININE 1.09 mg/dL (0.55-1.30); POTASSIUM 3.5 mmol/L (3.5-5.1)
[2019-12-12] MEDS: ACETAMINOPHEN 325 MG TABLET PO PRN (14:44)
[2019-12-13] MEDS: D10W 1,000 ML IV SCH (06:24)
[2019-12-13 07:45] VITALS: BP_SYST 127
[2019-12-13] MEDS: FUROSEMIDE 40 MG/4 ML VIAL IVP SCH (08:26)
[2019-12-13 12:55] VITALS: BP_SYST 125
== END 2019-12-13 14:24 | disposition expired | DRG 177 ==
LOC: EDBD 15:32 → SED 15:32 → STU 17:37 → MERGE 17:37 → STU 17:48 → SMU 11-15 09:28
PROVIDERS: ADMIT Internal Medicine Hospice and Palliative Medicine; ATTEND Internal Medicine Hospice and Palliative Medicine
PROC: 30233N1 Transfusion of Nonautologous Red Blood Cells into Peripheral Vein, Percutaneous Approach (ICD-10-PCS; 2019-11-08)
PROC: 0DBH8ZZ Excision of Cecum, Via Natural or Artificial Opening Endoscopic (ICD-10-PCS; 2019-11-12)
PROC: 0DBH8ZX Excision of Cecum, Via Natural or Artificial Opening Endoscopic, Diagnostic (ICD-10-PCS; 2019-11-12)
PROC: 0DBB8ZX Excision of Ileum, Via Natural or Artificial Opening Endoscopic, Diagnostic (ICD-10-PCS; 2019-11-12)
PROC: 05HY33Z Insertion of Infusion Device into Upper Vein, Percutaneous Approach (ICD-10-PCS; 2019-12-09)
PROC: B54NZZA Ultrasonography of Left Upper Extremity Veins, Guidance (ICD-10-PCS; 2019-12-09)
PROC: 0BH17EZ Insertion of Endotracheal Airway into Trachea, Via Natural or Artificial Opening (ICD-10-PCS; principal; 2019-12-13)
DX: J69.0 Pneumonitis due to inhalation of food and vomit (principal); G92 Toxic encephalopathy; A41.9 Sepsis, unspecified organism; E43 Unspecified severe protein-calorie malnutrition; K51.90 Ulcerative colitis, unspecified, without complications; F10.231 Alcohol dependence with withdrawal delirium; A04.72 Enterocolitis due to Clostridium difficile, not specified as recurrent; F10.229 Alcohol dependence with intoxication, unspecified; Z68.22 Body mass index [BMI] 22.0-22.9, adult; D50.9 Iron deficiency anemia, unspecified; E87.6 Hypokalemia; F12.90 Cannabis use, unspecified, uncomplicated; E11.649 Type 2 diabetes mellitus with hypoglycemia without coma; D69.6 Thrombocytopenia, unspecified; F15.10 Other stimulant abuse, uncomplicated; I10 Essential (primary) hypertension; K63.5 Polyp of colon; K64.8 Other hemorrhoids; F32.9 Major depressive disorder, single episode, unspecified; F41.9 Anxiety disorder, unspecified; D64.9 Anemia, unspecified; K74.60 Unspecified cirrhosis of liver; Z20.828 Contact with and (suspected) exposure to other viral communicable diseases; I46.9 Cardiac arrest, cause unspecified; Z88.8 Allergy status to other drugs, medicaments and biological substances; Z79.899 Other long term (current) drug therapy; Z88.0 Allergy status to penicillin
CPT/HCPCS: 36415; 45385; 70450-TC; 70551; 71045; 71275; 76700-TC; 80048; 80053; 80061; 80074; 80307; 81000-TC; 82140-TC; 82272; 82607; 82728; 82746; 82962; 82977-TC; 83516; 83540-TC; 83550-TC; 83615-TC; 83690-TC; 83735-TC; 83880; 84132-TC; 84443-TC; 84484; 85007; 85025; 85027; 85610-TC; 85651-TC; 85730-TC; 86038; 86140; 86256; 86886; 86900; 86901; 86920; 87045-TC; 87046; 87086; 87230-TC; 88305; 89055; 92610-GN; 93005; 93306; 94640; 95816; 96361; 96365; 96372; 96375; 97110-GP; 97116-GP; 97530-GP; 99285; C1751; C9113; G0378; G0482; J1030; J1815; J1940; J1956; J2060; J2175; J2250; J2270; J2405; J2930; J3370; J3411; J3475; J3480; J3490; J7030; J7042; J7050; J7060; J7512; J7613; J8597; P9021; Q9964; Q9967; U0002; U0003-CS